=== PATIENT | female | born 1950 | race Caucasian/White ===

== ENCOUNTER → 2017-04-20 | Outpatient (CLI) | payer MEDICARE ==
[2017-04-20 11:06] LABS: Blood Urea Nitrogen 19 mg/dL (7-17); Non-African American GFR(MDRD) >60 (>60 ml/min/1.73 sqM)
--- NOTE | 2017-04-20 11:54 | CT ---
EXAMINATION TYPE: CT brain wo/w con DATE OF EXAM: 04/20/2017 COMPARISON: 08/07/2012 HISTORY: Syncope CT DLP: 1887.60 mGycm, Automated exposure control for dose reduction was used. CONTRAST: Patient injected with 100 ml mL of Omnipaque 300. CT of the brain is performed utilizing 3 mm thick sections through the posterior fossa and 3 mm thick sections through the remaining calvarium. Study is performed within 24 hours of arrival to the hospital. No abnormal hyperdensity is present to suggest an acute intracranial hemorrhage. No mass lesion is evident. No acute infarcts are evident. Subtle periventricular white matter hypodensity likely on the basis o f chronic white matter ischemic change is more apparent on the postcontrast images. No abnormal enhan cement is evident. Ventricles and sulci are appropriate for the patient age. Paranasal sinuses and mastoid air cells within the [id number] are clear. IMPRESSIONS: 1. Subtle chronic appearing white matter ischemic changes. 2. Pre and postcontrast CT brain otherwise appears unremarkable.
== END | disposition home or self-care (01) ==
LOC: RADCTMAIN 10:27
PROVIDERS: ATTEND Family Medicine
DX: R90.82 White matter disease, unspecified (principal); R55 Syncope and collapse
CPT/HCPCS: 82565; 84520; 70470; 36415; Q9967

== ENCOUNTER 2017-04-28 12:56 | Emergency (ER) | payer MEDICARE ==
[2017-04-28 13:36] LABS: Glucose,Whole Blood 90 mg/dL (75-99)
--- NOTE | 2017-04-28 13:57 | ED ---
General Adult HPI - General Chief complaint: Neuro Symptoms/Deficit Stated complaint: Tingle on left side Time Seen by Provider: 04/28/17 13:20 Source: patient, RN notes reviewed Mode of arrival: ambulatory Limitations: no limitations - History of Present Illness Initial comments: This is a 66-year-old female presents emergency department stating that she had some tingling sensation the left side of her body just around [place] she followed up with the primary medical care doctor which point in time she had carotid Doppler echocardiogram and a CT of her brain admitting was negative. Patient states since that she's had a couple episodes of the same tingling but she's ignored it. Patient states it only happens at rest when she gets up and walks around the symptoms go away. Patient states today at about 10:30 she had an hour long episode of tingling on the left side of her body however the middle of it she got up to go to the bathroom and the symptoms subsided when she sat back down the came back per patient denied any palpitations. Patient denied any chest pain difficulty breathing shortness of breath. Patient denied any recent fever chills or cough. Patient denied abdominal pain patient denies nausea vomiting or diarrhea. - Related Data Home Medications Medication Instructions Recorded Confirmed Atorvastatin [Lipitor] 20 mg PO HS 12/28/14 04/28/17 Clopidogrel [Plavix] 75 mg PO DAILY 12/28/14 04/28/17 Furosemide [Lasix] 20 mg PO DAILY 12/28/14 04/28/17 Levothyroxine Sodium [Synthroid] 50 mcg PO DAILY 12/28/14 04/28/17 Losartan Potassium [Cozaar] 100 mg PO DAILY 12/28/14 04/28/17 Montelukast [Singulair] 10 mg PO DAILY 12/28/14 04/28/17 Highlands-3 Fatty Acids [Highlands-3] 1,000 mg PO DAILY@1200 12/28/14 04/28/17 Calcium Carb/Vitamin D3/Vit K1 1 tab PO BID 04/28/17 04/28/17 [Viactiv Soft Chew Tablet] Calcium Polycarbophil [Fibercon] 1,300 mg PO PC-LUNCH 04/28/17 04/28/17 Cyanocobalamin (Vitamin B-12) 1,000 mcg PO DAILY@1200 04/28/17 04/28/17 [Vitamin B-12] FLUoxetine HCL [PROzac] 20 mg PO DAILY 04/28/17 04/28/17 Multivitamins, Thera [Multivitamin 1 tab PO DAILY 04/28/17 04/28/17 (formulary)] Potassium Chloride [Klor-Con 10] 10 meq PO DAILY@1200 04/28/17 04/28/17 Allergies Allergy/AdvReac Type Severity Reaction Status Date / Time nickel Allergy Rash/Hives Verified 04/28/17 14:10 Review of Systems ROS Statement: Those systems with pertinent positive or pertinent negative responses have been documented in the HPI. ROS Other: All systems not noted in ROS Statement are negative. Past Medical History Past Medical History: Cancer, Mitral Valve Prolapse (MVP) Additional Past Medical History / Comment(s): breast History of Any Multi-Drug Resistant Organisms: MRSA Date of last positivie culture/infection: 12-30-2014 MDRO Source:: abdominal wound Past Surgical History: Bariatric Surgery, Hysterectomy, Joint Replacement, Tubal Ligation Additional Past Surgical History / Comment(s): carpal tunnel , lab band, R Knee replacement,Left breast masectomy. Past Psychological History: No Psychological Hx Reported, Depression Smoking Status: Former smoker Past Alcohol Use History: Rare Past Drug Use History: None Reported - Past Family History Father Additional Family Medical History / Comment(s): Mulitipul myloma, General Exam - General Exam Comments Initial Comments: GENERAL: Patient is well-developed and well-nourished. Patient is nontoxic and well- hydrated and is in no acute distress. ENT: Neck is soft and supple. No significant lymphadenopathy is noted. Oropharynx is clear. Moist mucous membranes. Neck has full range of motion without eliciting any pain. EYES: The sclera were anicteric and conjunctiva were pink and moist. Extraocular movements were intact and pupils were equal round and reactive to light. Eyelids were unremarkable. PULMONARY: Unlabored respirations. Good breath sounds bilaterally. No audible rales rhonchi or wheezing was noted. CARDIOVASCULAR: There is a regular rate and rhythm without any murmurs gallops or rubs. ABDOMEN: Soft and nontender with normal bowel sounds. No palpable organomegaly was noted. There is no palpable pulsatile mass. SKIN: Skin is clear with no lesions or rashes and otherwise unremarkable. NEUROLOGIC: Patient is alert and oriented x3. Cranial nerves II through XII are grossly intact. Motor and sensory are also intact. Normal speech, volume and content. Symmetrical smile. MUSCULOSKELETAL: Normal extremities with adequate strength and full range of motion. No lower extremity swelling or edema. No calf tenderness. LYMPHATICS: No significant lymphadenopathy is noted PSYCHIATRIC: Normal psychiatric evaluation. Normal interpersonal interactions appears functionally intact in deals appropriately with others. No signs of depression. No signs of anxiety. Limitations: no limitations Course Vital Signs 04/28/17 04/28/17 13:18 15:03 Temperature 97.5 F L Pulse Rate 67 61 Respiratory 16 19 Rate Blood Pressure 172/72 134/75 O2 Sat by Pulse 99 99 Oximetry Medical Decision Making - Medical Decision Making EKG shows normal sinus rhythm at 60 bpm CO interval 154 QRS is 86 QT interval 470 QTC is 478. Patient's EKG shows no ST segment elevation or depression or T wave abnormalities are noted. Patient remained symptom-free in the emergency department. Patient will follow-up with her primary medical care doctor. - Lab Data Result diagrams: 04/28/17 13:42 04/28/17 13:42 Lab Results 04/28/17 04/28/17 04/28/17 Range/Units 13:31 13:42 13:42 WBC 7.4 (3.8-10.6) k/uL RBC 4.81 (3.80-5.40) m/uL Hgb 13.8 (11.4-16.0) gm/dL Hct 43.3 (34.0-46.0) % MCV 90.0 (80.0-100.0) fL MCH 28.8 (25.0-35.0) pg MCHC 32.0 (31.0-37.0) g/dL RDW 14.9 (11.5-15.5) % Plt Count 301 (150-450) k/uL Neutrophils % 64 % Lymphocytes % 27 % Monocytes % 4 % Eosinophils % 2 % Basophils % 1 % Neutrophils # 4.7 (1.3-7.7) k/uL Lymphocytes # 2.0 (1.0-4.8) k/uL Monocytes # 0.3 (0-1.0) k/uL Eosinophils # 0.1 (0-0.7) k/uL Basophils # 0.1 (0-0.2) k/uL PT (9.0-12.0) sec INR (<1.2) APTT (22.0-30.0) sec Sodium (137-145) mmol/L Potassium (3.5-5.1) mmol/L Chloride (98-107) mmol/L Carbon Dioxide (22-30) mmol/L Anion Gap mmol/L BUN (7-17) mg/dL Creatinine (0.52-1.04) mg/dL Est GFR (MDRD) Af Amer (>60 ml/min/1.73 sqM) Est GFR (MDRD) Non-Af (>60 ml/min/1.73 sqM) Glucose (74-99) mg/dL POC Glucose (mg/dL) 90 (75-99) mg/dL POC Glu Administrative Services Coordinator ID Magi Mazariegos Calcium (8.4-10.2) mg/dL Total Bilirubin (0.2-1.3) mg/dL AST (14-36) U/L ALT (9-52) U/L Alkaline Phosphatase (38-126) U/L Total Creatine Kinase 75 (30-135) U/L CK-MB (CK-2) 0.8 (0.0-2.4) ng/mL CK-MB (CK-2) Rel Index 1.1 Troponin I <0.012 (0.000-0.034) ng/mL Total Protein (6.3-8.2) g/dL Albumin (3.5-5.0) g/dL 04/28/17 04/28/17 Range/Units 13:42 13:42 WBC (3.8-10.6) k/uL RBC (3.80-5.40) m/uL Hgb (11.4-16.0) gm/dL Hct (34.0-46.0) % MCV (80.0-100.0) fL MCH (25.0-35.0) pg MCHC (31.0-37.0) g/dL RDW (11.5-15.5) % Plt Count (150-450) k/uL Neutrophils % % Lymphocytes % % Monocytes % % Eosinophils % % Basophils % % Neutrophils # (1.3-7.7) k/uL Lymphocytes # (1.0-4.8) k/uL Monocytes # (0-1.0) k/uL Eosinophils # (0-0.7) k/uL Basophils # (0-0.2) k/uL PT 9.6 (9.0-12.0) sec INR 1.0 (<1.2) APTT 24.3 (22.0-30.0) sec Sodium 140 (137-145) mmol/L Potassium 4.3 (3.5-5.1) mmol/L Chloride 101 (98-107) mmol/L Carbon Dioxide 30 (22-30) mmol/L Anion Gap 9 mmol/L BUN 12 (7-17) mg/dL Creatinine 0.74 (0.52-1.04) mg/dL Est GFR (MDRD) Af Amer >60 (>60 ml/min/1.73 sqM) Est GFR (MDRD) Non-Af >60 (>60 ml/min/1.73 sqM) Glucose 88 (74-99) mg/dL POC Glucose (mg/dL) (75-99) mg/dL POC Glu Administrative Services Coordinator ID Calcium 10.3 H (8.4-10.2) mg/dL Total Bilirubin 0.4 (0.2-1.3) mg/dL AST 21 (14-36) U/L ALT 37 (9-52) U/L Alkaline Phosphatase 88 (38-126) U/L Total Creatine Kinase (30-135) U/L CK-MB (CK-2) (0.0-2.4) ng/mL CK-MB (CK-2) Rel Index Troponin I (0.000-0.034) ng/mL Total Protein 7.1 (6.3-8.2) g/dL Albumin 4.4 (3.5-5.0) g/dL Disposition Clinical Impression: Paresthesia Disposition: HOME SELF-CARE Condition: Good Instructions: Paresthesia (ED) Referrals: Nay Ghosh DO [Primary Care Provider] - 1-2 days Time of Disposition: 15:42
[2017-04-28 14:29] LABS: Basophils # (A) 0.1 k/uL (0-0.2); Basophils % (A) 1 %; Eosinophils # (A) 0.1 k/uL (0-0.7); Eosinophils % (A) 2 %; HCT 43.3 % (34.0-46.0); HGB 13.8 gm/dL (11.4-16.0); Lymphocytes % (A) 27 %; MCH 28.8 pg (25.0-35.0); Mean Platelet Volume 6.6; Monocytes # (A) 0.3 k/uL (0-1.0); Monocytes % (A) 4 %; Neutrophils # (A) 4.7 k/uL (1.3-7.7); Neutrophils % (A) 64 %; Platelet Count 301 k/uL (150-450); RBC 4.81 m/uL (3.80-5.40); RDW 14.9 % (11.5-15.5); WBC 7.4 k/uL (3.8-10.6)
[2017-04-28 14:37] LABS: Partial Thromboplastin Time 24.3 sec (22.0-30.0); Prothrombin Time 9.6 sec (9.0-12.0)
[2017-04-28 14:44] LABS: ALT 37 U/L (9-52); AST 21 U/L (14-36); Albumin 4.4 g/dL (3.5-5.0); Alkaline Phosphatase 88 U/L (38-126); Anion Gap 9 mmol/L; Blood Urea Nitrogen 12 mg/dL (7-17); Calcium 10.3 mg/dL (8.4-10.2); Carbon Dioxide 30 mmol/L (22-30); Chloride 101 mmol/L (98-107); Glucose 88 mg/dL (74-99); Potassium 4.3 mmol/L (3.5-5.1); Sodium 140 mmol/L (137-145); Total Bilirubin 0.4 mg/dL (0.2-1.3); Total Protein 7.1 g/dL (6.3-8.2)
[2017-04-28 14:54] LABS: Creatine Kinase 75 U/L (30-135)
[2017-04-28 15:05] LABS: Creatine Kinase MB 0.8 ng/mL (0.0-2.4); Troponin I <0.012 ng/mL (0.000-0.034)
[2017-04-28 23:28] VITALS: BP 143/71; PULSE 61; RESP 16; TEMP 98.1
== END 2017-04-28 15:48 | disposition home or self-care (01) ==
LOC: EC 12:56
DX: R20.2 Paresthesia of skin (principal); Z87.891 Personal history of nicotine dependence; Z79.02 Long term (current) use of antithrombotics/antiplatelets; Z79.899 Other long term (current) drug therapy; Z91.09 Other allergy status, other than to drugs and biological substances; Z85.3 Personal history of malignant neoplasm of breast; Z90.12 Acquired absence of left breast and nipple; Z86.14 Personal history of Methicillin resistant Staphylococcus aureus infection
CPT/HCPCS: 36415; 80053; 82550; 82553; 84484; 85025; 85610; 85730; 93005; 99284

== ENCOUNTER → 2017-05-11 | Outpatient (CLI) | payer MEDICARE ==
--- NOTE | 2017-05-11 12:14 | MM ---
Reason for exam: additional evaluation requested from prior study. Last mammogram was performed 1 year and 3 months ago. History: Patient is postmenopausal, has history of other cancer at age 65, and has history of breast cancer at age 51. Cancelled Right US Needle Biopsy of the right breast, April 30, 2009. Malignant stereotactic core biopsy of the left breast, March 16, 2002. Mastectomy of the left breast, 2001. Core biopsy of the left breast. Chemotherapy. Took hormonal contraceptives for 12 years beginning at age 19. Took estrogen for 5 years beginning at age 45. Took tamoxifen for 5 years beginning at age 51. Physical Findings: Nurse did not find any significant physical abnormalities on exam. MG 3D Diag Mammo W/Cad RT CC and MLO view(s) were taken of the right breast. Prior study comparison: February 04, 2016, right breast MG 3d diag mammo w/cad RT. January 02, 2015, right breast MG diagnostic mammo RT w CAD. The breast tissue is heterogeneously dense. This may lower the sensitivity of mammography. There is chronic nodularity in the right breast. There is no discrete abnormality. No significant new findings when compared with previous films. These results were verbally communicated with the patient and result sheet given to the patient on 05/11/17. ASSESSMENT: Benign, BI-RAD 2 RECOMMENDATION: Follow-up diagnostic mammogram of the right breast in 1 year.
== END | disposition home or self-care (01) ==
LOC: RADMAMWWP 10:49
PROVIDERS: ATTEND Family Medicine
DX: Z08 Encounter for follow-up examination after completed treatment for malignant neoplasm (principal); Z85.3 Personal history of malignant neoplasm of breast
CPT/HCPCS: 77065; G0279

== ENCOUNTER → 2017-10-11 | Outpatient (CLI) | payer MEDICARE | END | disposition home or self-care (01) | LOC: RADECHMAIN 12:04 | PROVIDERS: ATTEND Family Medicine | DX: I49.3 Ventricular premature depolarization (principal); I47.1 Supraventricular tachycardia | CPT/HCPCS: 93270; 93271 ==

== ENCOUNTER → 2018-10-12 | Outpatient (CLI) | payer MEDICARE ==
--- NOTE | 2018-10-12 10:55 | MM ---
Reason for exam: additional evaluation requested from abnormal screening. Last mammogram was performed 1 year and 5 months ago. History: Patient is postmenopausal, has history of other cancer at age 65, and has history of breast cancer at age 51. Cancelled Right US Needle Biopsy of the right breast, April 30, 2009. Malignant stereotactic core biopsy of the left breast, March 16, 2002. Mastectomy of the left breast, 2001. Core biopsy of the left breast. Chemotherapy. Took hormonal contraceptives for 12 years beginning at age 19. Took estrogen for 5 years beginning at age 45. Took tamoxifen for 5 years beginning at age 51. Physical Findings: Nurse did not find any significant physical abnormalities on exam. MG 3D Diag Mammo W/Cad RT CC and MLO view(s) were taken of the right breast. Prior study comparison: May 11, 2017, right breast MG 3d diag mammo w/cad RT. February 04, 2016, right breast MG 3d diag mammo w/cad RT. The breast tissue is heterogeneously dense. This may lower the sensitivity of mammography. Finding #1: There is a 5 mm equal density (isodense), obscured mass in the upper outer quadrant of the right breast. Finding #2: There are typically benign calcifications in the right breast. These results were verbally communicated with the patient and result sheet given to the patient on 10/12/18. ASSESSMENT: Incomplete: need additional imaging evaluation, BI-RAD 0 RECOMMENDATION: Ultrasound of the right breast.
--- NOTE | 2018-10-12 10:56 | USB ---
Reason for exam: additional evaluation requested from abnormal screening. History: Patient is postmenopausal, has history of other cancer at age 65, and has history of breast cancer at age 51. Cancelled Right US Needle Biopsy of the right breast, April 30, 2009. Malignant stereotactic core biopsy of the left breast, March 16, 2002. Mastectomy of the left breast, 2001. Core biopsy of the left breast. Chemotherapy. Took hormonal contraceptives for 12 years beginning at age 19. Took estrogen for 5 years beginning at age 45. Took tamoxifen for 5 years beginning at age 51. US Breast Limited RT Right limited breast ultrasound including focal area of concern, retroareolar and axilla demonstrates a 0.5 x 0.3 x 0.3cm oval, lobular, cystic lesion at 10 o'clock and a 0.4 x 0.3 x 0.2cm oval, cystic lesion at 10 o'clock. These results were verbally communicated with the patient and result sheet given to the patient on 10/12/18. ASSESSMENT: Benign, BI-RAD 2 RECOMMENDATION: Routine screening mammogram of both breasts in 1 year.
== END | disposition home or self-care (01) ==
LOC: RADMAMWWP 08:28
PROVIDERS: ATTEND Family Medicine
DX: R92.8 Other abnormal and inconclusive findings on diagnostic imaging of breast (principal)
CPT/HCPCS: 77065; 76642; G0279; 77061

== ENCOUNTER → 2019-04-04 | Outpatient (CLI) | payer MEDICARE ==
--- NOTE | 2019-04-04 13:07 | CT ---
EXAMINATION TYPE: CT brain wo con DATE OF EXAM: 04/04/2019 COMPARISON: 04/20/2017 HISTORY: fainted on thanksgiving, memory loss CT DLP: 1064.3 mGycm Automated exposure control for dose reduction was used. TECHNIQUE: CT scan of the head is performed without contrast. FINDINGS: There is no acute intracranial hemorrhage or midline shift identified. There is diffuse v entricular and sulcal prominence consistent with diffuse age-related cerebral atrophy. There is low- attenuation in the periventricular white matter consistent with chronic small vessel ischemic change. Incidentally noted partially empty sella turcica. Dominant left frontal arachnoid granulation. The globes are intact and the visualized sinuses are clear. IMPRESSION: No acute intracranial hemorrhage or midline shift. There is diffuse age-related cerebra l atrophy and chronic small vessel ischemic change noted.
== END | disposition home or self-care (01) ==
LOC: RADCTMAIN 12:05
PROVIDERS: ATTEND Family Medicine
DX: G31.1 Senile degeneration of brain, not elsewhere classified (principal); I67.82 Cerebral ischemia
CPT/HCPCS: 70450

== ENCOUNTER → 2019-07-07 | Outpatient (CLI) | payer MEDICARE ==
--- NOTE | 2019-07-07 15:36 | MR ---
EXAMINATION TYPE: MR shoulder LT wo con DATE OF EXAM: 07/07/2019 COMPARISON: LEFT SHOULDER X-RAY JUNE 13, 2019. HISTORY: Pain in left shoulder. Pain with difficulty raising overhead for 3 to 4 months. TECHNIQUE: Multiplanar, multisequence imaging of the left shoulder is performed without contrast. FINDINGS: Rotator Cuff: Increased signal distal supraspinatus and infraspinatus tendons with focal articular blackwell rface tear involving the mid to posterior fibers supraspinatus tendon measuring 7 mm transversely sag ittal image 7 x 4 mm transversely coronal image 18 and humeral head one day earlier today was likely atypical hemangioma . Rotator cuff muscle bulk is preserved. Subscapularis tendon intact with some i ncreased signal. Acromioclavicular Joint: Fairly severe narrowing with mild superior capsular hypertrophy. Underlying fat plane maintained. Distal acromion morphology unremarkable. Loss of fat planes at this level noted . Glenohumeral Joint: Advanced narrowing inferiorly with large spur. Moderate joint effusion extending superiorly. Diminished T1 and increased T2 signal superior medial humeral head. Similar findings seen in the osseous glenoid with reactive subchondral cystic change. Labrum: The superior labrum presumed torn with increased signal at the biceps anchor coronal image 19 . Biceps Tendon: The long head of biceps is in normal location within bicipital groove. Bone marrow signal: As above. Other: No additional significant abnormality is appreciated. IMPRESSION: 1. Full thickness articular surface tear involving posterior one half of the supraspinatus tendon. 2. Fairly advanced degenerative changes glenohumeral and acromioclavicular joints as detailed above. Underlying impingement at level of acromion felt present.
== END | disposition home or self-care (01) ==
LOC: RADMRIMAIN 14:29
PROVIDERS: ATTEND Orthopaedic Surgery
DX: M75.112 Incomplete rotator cuff tear or rupture of left shoulder, not specified as traumatic (principal); M19.012 Primary osteoarthritis, left shoulder

== ENCOUNTER → 2019-10-17 | Outpatient (CLI) | payer MEDICARE | END | disposition home or self-care (01) | LOC: LABPAT 15:00 | PROVIDERS: ATTEND Orthopaedic Surgery | DX: Z01.812 Encounter for preprocedural laboratory examination (principal) | CPT/HCPCS: 87070 ==

== ENCOUNTER 2019-10-24 06:31 | Inpatient (IN) | payer MEDICARE ==
[2019-10-23 08:33] VITALS: BMI 45.7
--- NOTE | 2019-10-23 10:05 | HP ---
HISTORY AND PHYSICAL CHIEF COMPLAINT: Left shoulder pain. HISTORY OF PRESENT ILLNESS: The patient is a 69-year-old, right-hand dominant, retired female who presents with left shoulder pain, worsening over the past 4 years. She notes stiffness and pain with any overhead use. She is also having significant night symptoms. She has tried previous medications and injections with temporary partial relief. She notes the pain limits her normal function and activities. PAST MEDICAL HISTORY: Significant for hypertension, hypothyroidism, heart disease and breast cancer. PAST SURGICAL HISTORY: Significant right total knee arthroplasty and left mastectomy. CURRENT MEDICATIONS: Atorvastatin, cyclobenzaprine, fluoxetine, Lasix, levothyroxine, Plavix, metoprolol, Singulair, and tramadol. She denies drug allergies. FAMILY HISTORY: Significant for cancer. SOCIAL HISTORY: Negative for current tobacco or alcohol use. REVIEW OF SYSTEMS: Sixteen point review of systems otherwise reviewed and is noncontributory. PHYSICAL EXAMINATION: On examination, the patient is approximately 5 foot 2 inches, 230 pounds of endomorphic habitus. HEENT exam is nonfocal. Neck is supple. On examination of her left shoulder, she is tender about the anterior glenohumeral joint. She has moderate subacromial crepitus. Active range of motion forward elevation 95 degrees. External rotation of the arm side 30 degrees, internal rotation to L3. Motor strength is 5 minus over 5 for abduction and external rotation. Impingement test, Neer test, and Speed test are positive. Her distal neurovascular appears intact in the left upper extremity. X-rays of the left shoulder obtained in the office show severe glenohumeral joint osteoarthrosis with [id number] changes. Previous MRI showed evidence of a possible small tear involving the anterior aspect of the supraspinatus. IMPRESSION: 1. Left severe glenohumeral joint glenohumeral joint osteoarthrosis. 2. History of breast cancer status post mastectomy. RECOMMENDATIONS: I talked to the patient at length regarding her condition and treatment options. At this point, she is quite symptomatic and limited because of pain related to her osteoarthrosis. After thorough discussion, she opts to proceed with surgery. We will plan to proceed with left total shoulder arthroplasty. Risks and benefits were discussed at length in layman's terms. We will likely reinstitute her Plavix postoperatively. MMODL / IJN: [id number] /
[~2019-10-24 06:31] MED LIST: ACETAMINOPHEN TAB 500 MG TAB PO ONE; DEXAMETHASONE SOD PHOSPHATE 10 MG/ML 1 ML VIAL IV ONE; MELOXICAM 7.5 MG TAB PO ONE; MIDAZOLAM 2 MG/2 ML VIAL IV PRN; ONDANSETRON 4 MG/2 ML VIAL IVP ONE; TRANEXAMIC ACID 1,000 MG in SODIUM CHLORIDE 0.9% 100 ML IVPB ONE
[2019-10-24] MEDS: LACTATED RINGERS 1,000 ML IV SCH (07:01)
[2019-10-24] MEDS ORDERED: ONDANSETRON 4 MG/2 ML VIAL ONE ×2 (07:03→08:01)
[2019-10-24] MEDS ORDERED: ACETAMINOPHEN TAB 500 MG TAB ONE (07:03)
[2019-10-24 07:40] LABS: Basophils # (A) 0.1 k/uL (0-0.2); Basophils % (A) 1 %; Eosinophils # (A) 0.3 k/uL (0-0.7); Eosinophils % (A) 4 %; HCT 37.4 % (34.0-46.0); Hypochromasia Slight; Lymphocytes # (A) 1.5 k/uL (1.0-4.8); Lymphocytes % (A) 20 %; MCH 28.4 pg (25.0-35.0); MCV 88.7 fL (80.0-100.0); Mean Platelet Volume 6.6; Monocytes # (A) 0.3 k/uL (0-1.0); Monocytes % (A) 5 %; Neutrophils # (A) 5.1 k/uL (1.3-7.7); Neutrophils % (A) 70 %; Platelet Count 258 k/uL (150-450); RBC 4.22 m/uL (3.80-5.40); RDW 15.2 % (11.5-15.5); WBC 7.4 k/uL (3.8-10.6)
[2019-10-24 07:47] LABS: Partial Thromboplastin Time 24.8 sec (22.0-30.0); Prothrombin Time 10.1 sec (9.0-12.0)
[2019-10-24] MEDS ORDERED: fentaNYL (PF) 50 MCG/ML 2 ML AMP ONE (08:01)
[2019-10-24] MEDS ORDERED: ROPIVACAINE 5 MG/ML 30 ML VIAL ONE (08:01)
[2019-10-24] MEDS ORDERED: SODIUM CHLORIDE 0.9% 100 ML BAG ONE (08:01)
[2019-10-24] MEDS ORDERED: LIDOCAINE 1% INJ 10MG/ML (20 ML MDV) ONE (08:01)
[2019-10-24] MEDS ORDERED: PROPOFOL 10 MG/ML 20 ML VIAL IV ONE (08:01)
[2019-10-24] MEDS ORDERED: TRANEXAMIC ACID 1,000 MG/10 ML VIAL ONE (08:01)
[2019-10-24] MEDS ORDERED: SUCCINYLCHOLINE CHLORIDE VIAL 200 MG/10 ML VIAL IV ONE (08:01)
[2019-10-24] MEDS ORDERED: PHENYLEPHRINE-0.9% NACL SYG 1 MG/10 ML SYRINGE ONE (08:01)
[2019-10-24] MEDS ORDERED: MIDAZOLAM 2 MG/2 ML VIAL ONE (08:01)
[2019-10-24 08:03] LABS: ALT 22 U/L (4-34); AST 26 U/L (14-36); African American GFR (CKD) >90 (>60 ml/min/1.73 sqM); Albumin 4.2 g/dL (3.5-5.0); Alkaline Phosphatase 96 U/L (38-126); Anion Gap 7 mmol/L; Blood Urea Nitrogen 12 mg/dL (7-17); Calcium 9.3 mg/dL (8.4-10.2); Carbon Dioxide 30 mmol/L (22-30); Chloride 105 mmol/L (98-107); Glucose 111 mg/dL (74-99); Non-African American GFR(CKD) 90 (>60 ml/min/1.73 sqM); Potassium 3.9 mmol/L (3.5-5.1); Sodium 142 mmol/L (137-145); Total Bilirubin 0.7 mg/dL (0.2-1.3); Total Protein 6.9 g/dL (6.3-8.2)
[2019-10-24] MEDS ORDERED: HYDROcodone/APAP 5-325MG 1 EACH TAB PO PRN ×2 (09:52→09:54)
[2019-10-24] MEDS ORDERED: ONDANSETRON 4 MG/2 ML VIAL IVP PRN (09:52)
[2019-10-24] MEDS ORDERED: SENNOSIDES-DOCUSATE SODIUM 1 EACH TAB PO PRN (09:52)
[2019-10-24] MEDS ORDERED: HYDROmorphone 0.5 MG/0.5 ML SYRINGE IVP PRN (09:52)
[2019-10-24] MEDS ORDERED: HYDROmorphone 1 MG/ML 1 ML SYRINGE IVP PRN (09:52)
[2019-10-24] MEDS ORDERED: ACETAMINOPHEN TAB 325 MG TAB PO PRN (09:54)
--- NOTE | 2019-10-24 10:20 | P.OP ---
Date of Procedure: 10/24/19 Preoperative Diagnosis: Severe left glenohumeral joint osteoarthrosis Postoperative Diagnosis: Same Procedure(s) Performed: Left total shoulder arthroplasty Implants: [employer] size 10 press-fit stem/size 10 metaphysis, 44 x 21 mm eccentric humeral head, 44 mm cemented pegged glenoid Anesthesia: ZACHARY Surgeon: Kain Kelly Admissions Rn #1: Anthony Paz Estimated Blood Loss (ml): 100 Pathology: other (Humeral head) Condition: stable Disposition: PACU Indications for Procedure: The patient's a 69-year-old female who presents with progressive left shoulder pain secondary osteoarthrosis despite conservative measures. A discussion of the risks and benefits of operative intervention versus continued conservative measures was made with patient. She opted to proceed with surgery. Operative risks to include infection, fracture, development blood clots, neurovascular injury, possible component loosening, possible component failure need for subsequent procedures was discussed. Informed consent was obtained. Operative Findings: As below Description of Procedure: The patient was brought to the operating room, and after induction of general anesthesia was placed in the beachchair position. The bony prominences were appropriately padded. The left upper extremity was prepped and draped in normal fashion. A deltopectoral incision was then made lateral to the coracoid process extending approximately 12 cm. The skin was incised sharply. Subcutaneous tissues were divided bluntly. Electrocautery was used for hemostasis. The deltopectoral interval was identified and the cephalic vein gently retracted laterally with the deltoid. Subdeltoid adhesions were bluntly dissected. A self-retaining retractor was placed. The clavipectoral fascia was opened and the conjoined tendon gently retracted medially. The upper one third of the pectoralis major was released to help facilitate exposure. The biceps was identified and the sheath was opened. The rotator interval was opened. The biceps was tenotomized and allowed to retract distally. The lesser tuberosity osteotomy was performed with a small sagittal saw. This completed with an osteotome. The humeral head was then exposed releasing the capsule off the humeral neck. The shoulder was gently dislocated. A starting hole was made in the head in line with the humeral shaft. The shaft was reamed by hand up to 10 mm. There is good distal chatter. The cutting guide was placed planning on a cut flush with the rotator cuff insertion and 30 of retroversion. The cutting block was pinned in place. The humeral head cut was then made. This measured most appropriately at 44 x 21 mm. Residual inferior osteophytes were carefully removed flush with the [place] cortical bone. A posterior glenoid retractor was placed. The glenoid was then exposed releasing the labrum from the and 6:00 to 12 o'clock position. Residual labral tissue was removed. The glenoid sized most appropriate 44 mm. A guidewire was then inserted planning on the appropriate version. The glenoid was reamed down to a bleeding bony surface. The central pedicle was drilled. The alignment guide was placed in the peripheral peg holes drilled. The trial size 44 mm glenoid was placed and was fully seated. There was good anterior to posterior and inferior to superior fit. The trial component was removed. Pulsatile lavage was utilized. The bony surface was dried. The peripheral peg holes were then pressurized with cement utilizing a syringe. Excess cement was removed. A central peg glenoid was then placed and was fully seated. This was gently impacted. This was held in place until the cement had sufficiently hardened. Attention was then paid again towards preparing the proximal humerus. The appropriate broach was placed in 30 of retroversion and was fully seated. An eccentric 44 x 21 mm humeral head was placed. The shoulder was gently reduced. It was taken through a range of motion. It was felt to be stable in flexion and extension with internal and external rotation. I felt there was adequate hinduism of soft tissue tension. The shoulder was gently dislocated. The trial components were then removed. A #2 Ethibond was placed laterally for reattachment of the lesser tuberosity. The humeral stem was inserted in 30 of retroversion and was fully seated. There was good rotational stability. The eccentric 44 x 21 mm humeral head was gently impacted. The shoulder was then gently reduced and taken through range of motion and was felt to be stable. Pulsatile lavage was utilized. Lesser tuberosity was reattached utilizing #2 Ethibond suture. The rotator interval was closed with #2 Ethibond suture. She had minimal drainage at this point therefore a deep drain was not placed. The deltopectoral interval was closed with interrupted 2-0 Vicryl sutures. The subcu tissues were reapproximated with interrupted 2-0 Vicryl sutures. The skin was reprepped with 3-0 subcuticular Prolene suture. Steri-Strips were applied. A sterile dressing was applied in addition to a sling. The patient was then awoken from general anesthesia and transferred to recovery room in good condition. Blood loss was estimated at 100 mL. No complications were incurred. Sponge and needle counts were correct at the end the case. Vladimir WILLIAMSON assistance during the major components is case to include exposure, bony resection, implantation, and closure.
[2019-10-24] MEDS ORDERED: ROPIVACAINE 5 MG/ML 30 ML VIAL MISCELLANE ONE (10:34)
--- NOTE | 2019-10-24 11:07 | P.ANPRN ---
Procedure Note - Anesthesia - Nerve Block Performed Left Interscalene Single Date of Procedure: 10/24/19 Procedure Start Time: 10:40 Procedure Stop Time: 10:45 Location of Patient: Phase I Indication: Acute Post-Operative Pain, Requested by Surgeon Specifically requested for management of pain by : Kain Kelly Sedation Type: Awake Preparation: Sterile Prep, Sterile Dressing Position: Sitting Catheter: None Needle Types: Pajunk Needle Gauge: 21, Other (see comment) (2 inch ) Ultrasound used to visualize needle placement: Yes Ultrasound used to observe medication spread: Yes Injectate: 0.5% Ropivacaine (see comment for volume) (30ml) Blood Aspirated: No Pain Paresthesia on Injection Noted: No Resistance on Injection: Normal Image Stored and Saved: Yes Events: Uneventful and Well Tolerated
[2019-10-24] MEDS ORDERED: LACTATED RINGERS 1,000 ML IV ONE (12:19)
[2019-10-24] MEDS: HYDROmorphone 0.5 MG/0.5 ML SYRINGE IVP PRN ×2 (12:25→12:34)
--- NOTE | 2019-10-24 12:58 | XR ---
Left shoulder HISTORY: Status post left total shoulder arthroplasty Single frontal view of the left shoulder Patient shows left shoulder arthroplasty change. Surgical clips are present in the left axilla at the bony labrum. Lucency is present in the soft tissues. There is anatomic alignment. Left lung apex as visualized is unremarkable. Aorta is dense. IMPRESSION: Orthopedic follow-up.
[2019-10-24] MEDS: traMADol 50 MG TAB PO SCH ×3 (15:05→22:43)
[2019-10-24] MEDS ORDERED: ATORVASTATIN 40 MG TAB PO SCH (21:00)
[2019-10-25] MEDS: LACTATED RINGERS 1,000 ML IV SCH (06:09)
[2019-10-25] MEDS ORDERED: LEVOTHYROXINE 50 MCG TAB PO SCH (06:30)
[2019-10-25 06:44] LABS: Basophils # (A) 0.1 k/uL (0-0.2); Basophils % (A) 0 %; Eosinophils # (A) 0.1 k/uL (0-0.7); Eosinophils % (A) 1 %; HCT 34.2 % (34.0-46.0); Hypochromasia Slight; Lymphocytes # (A) 1.5 k/uL (1.0-4.8); Lymphocytes % (A) 13 %; MCH 29.1 pg (25.0-35.0); MCHC 32.3 g/dL (31.0-37.0); MCV 90.2 fL (80.0-100.0); Mean Platelet Volume 6.8; Monocytes # (A) 0.4 k/uL (0-1.0); Monocytes % (A) 4 %; Neutrophils # (A) 9.9 k/uL (1.3-7.7); Neutrophils % (A) 82 %; Platelet Count 312 k/uL (150-450); RDW 15.2 % (11.5-15.5); WBC 12.1 k/uL (3.8-10.6)
[2019-10-25 06:58] LABS: HGB 11.1 gm/dL (11.4-16.0)
[2019-10-25 07:15] VITALS: BP 134/76; RESP 17; TEMP 98.2
[2019-10-25] MEDS ORDERED: FLUoxetine HCL 10 MG CAP PO SCH (09:00)
[2019-10-25] MEDS ORDERED: MONTELUKAST 10 MG TAB PO SCH (09:00)
[2019-10-25] MEDS ORDERED: CLOPIDOGREL 75 MG TAB PO SCH (09:00)
[2019-10-25] MEDS ORDERED: METOPROLOL SUCCINATE (ER) 25 MG TAB.ER.24H PO SCH (09:00)
[2019-10-25] MEDS ORDERED: FUROSEMIDE 40 MG TAB PO SCH (09:30)
--- NOTE | 2019-10-25 09:31 | P.CONS ---
History of Present Illness - Reason for Consult Consult date: 10/25/19 Medical eval - Chief Complaint Left shoulder pain - History of Present Illness Jayne Llanes is a 69 yo F with history of osteoarthritis, diastolic CHF, hypertension, hypothyroid who is admitted for scheduled left total shoulder arthroplasty. She is postop day #1 today, doing well reports shoulder pain limiting her sleep but denies fever, chills, shortness of breath. Pain is controlled with oral medications. She does complain of some leg swelling today. Review of Systems All systems: negative Constitutional: Denies chills, Denies fever Eyes: denies blurred vision, denies pain Ears, nose, mouth and throat: Denies headache, Denies sore throat Cardiovascular: Reports edema, Denies chest pain, Denies shortness of breath Respiratory: Denies cough Gastrointestinal: Denies abdominal pain, Denies diarrhea, Denies nausea, Denies vomiting Genitourinary: Denies dysuria, Denies hematuria Musculoskeletal: Reports as per HPI, Reports limitation of motion, Denies myalgias Integumentary: Denies pruritus, Denies rash Neurological: Denies numbness, Denies weakness Psychiatric: Denies anxiety, Denies depression Endocrine: Denies fatigue, Denies weight change Past Medical History Past Medical History: Cancer, Heart Failure, CVA/TIA, Hyperlipidemia, Hypertension, Mitral Valve Prolapse (MVP), Osteoarthritis (OA), Thyroid Disorder Additional Past Medical History / Comment(s): hx. breast cancer 17 yrs. ago, TIA 2018-no residual effects History of Any Multi-Drug Resistant Organisms: MRSA Year Discovered:: 12-30-2014 MDRO Source:: abdominal wound Past Surgical History: Bariatric Surgery, Hysterectomy, Joint Replacement, Tubal Ligation Additional Past Surgical History / Comment(s): carpal tunnel, ganglion cyst, lap band, R Knee replacement,Left breast mastectomy. Past Anesthesia/Blood Transfusion Reactions: No Reported Reaction Past Psychological History: Depression Smoking Status: Former smoker Past Alcohol Use History: Rare Additional Past Alcohol Use History / Comment(s): quit smoking 21 yrs. ago, had smoked since teens >1ppd Past Drug Use History: None Reported - Past Family History Father Additional Family Medical History / Comment(s): Mulitipul myloma, Medications and Allergies Home Medications Medication Instructions Recorded Confirmed Type Atorvastatin [Lipitor] 40 mg PO HS 12/28/14 10/24/19 History Clopidogrel [Plavix] 75 mg PO DAILY 12/28/14 10/23/19 History Furosemide [Lasix] 40 mg PO DAILY 12/28/14 10/23/19 History Levothyroxine Sodium [Synthroid] 50 mcg PO DAILY 12/28/14 10/23/19 History Losartan Potassium [Cozaar] 100 mg PO DAILY 12/28/14 10/23/19 History Montelukast [Singulair] 10 mg PO DAILY 12/28/14 10/23/19 History Calcium Carb/Vitamin D3/Vit K1 1 tab PO DAILY 04/28/17 10/24/19 History [Viactiv Soft Chew Tablet] FLUoxetine HCL [PROzac] 10 mg PO DAILY 04/28/17 10/23/19 History Potassium Chloride [Klor-Con 10] 10 meq PO DAILY@1200 04/28/17 10/23/19 History Cholecalciferol [Vitamin D3 (25 1,000 unit PO DAILY 10/23/19 10/23/19 History Mcg = 1000 Iu)] Metoprolol Succinate (ER) [Toprol 12.5 mg PO DAILY 10/23/19 10/23/19 History Xl] Multivitamins, Thera [Multivitamin 1 tab PO DAILY 10/23/19 10/23/19 History (formulary)] Naproxen [Naprosyn] 375 mg PO Q12HR 10/23/19 10/23/19 History Vitamin B Complex 1 each PO DAILY 10/23/19 10/23/19 History diphenhydrAMINE [Benadryl] 25 mg PO BID PRN 10/23/19 10/24/19 History Allergies Allergy/AdvReac Type Severity Reaction Status Date / Time nickel Allergy Rash/Hives Verified 10/20/19 15:22 Physical Exam Vitals: Vital Signs Temp Pulse Pulse Resp BP Pulse Ox 10/25/19 07:00 98.2 F 67 17 134/76 96 10/25/19 01:04 98.5 F 88 15 109/64 95 10/24/19 19:38 98.8 F 72 16 118/70 95 10/24/19 16:00 66 70 18 10/24/19 15:45 98.5 F 70 18 137/80 93 L 10/24/19 14:43 66 16 125/65 99 10/24/19 14:15 69 14 113/72 97 10/24/19 14:00 65 16 134/69 99 10/24/19 13:27 68 14 130/61 99 10/24/19 12:30 69 16 132/74 97 10/24/19 12:00 68 16 137/70 100 10/24/19 11:25 65 16 124/62 99 10/24/19 11:00 64 16 122/65 100 10/24/19 10:45 62 16 122/65 100 10/24/19 10:30 62 16 131/69 100 10/24/19 10:15 97.0 F L 66 16 135/64 100 Intake and Output 10/24/19 10/25/19 10/25/19 22:59 06:59 14:59 Intake Total 296 260 Output Total 500 Balance -204 260 Intake: Oral 296 260 Output: Urine 500 Other: # Voids 1 1 Weight 113.398 kg Gen.: Well-developed, well-nourished white female in no acute distress HEENT: Normocephalic, atraumatic, mucous membranes moist Neck: Supple, no thyromegaly, no JVD CV: Regular rate and rhythm, no murmur. 2+ edema bilateral lower extremities Lungs: Normal respiratory effort clear throughout Abdomen: Soft, nontender, bowel sounds present Extremities: Left shoulder in sling, reduced range of motion Neuro: Alert and oriented 3 no focal deficits Skin: Warm and dry Results CBC & Chem 7: 10/25/19 05:58 10/24/19 07:20 Labs: Abnormal Lab Results - Last 24 Hours (Table) 10/25/19 Range/Units 05:58 WBC 12.1 H (3.8-10.6) k/uL Hgb 11.1 L (11.4-16.0) gm/dL Neutrophils # 9.9 H (1.3-7.7) k/uL Assessment and Plan (1) Osteoarthritis of left shoulder Current Visit: Yes Status: Acute Code(s): M19.012 - PRIMARY OSTEOARTHRITIS, LEFT SHOULDER SNOMED Code(s): 443812950327093 (2) Chronic diastolic CHF (congestive heart failure) Current Visit: Yes Status: Acute Code(s): I50.32 - CHRONIC DIASTOLIC (CONGESTIVE) HEART FAILURE SNOMED Code(s): 052516626 (3) Hypertension Current Visit: Yes Status: Acute Code(s): I10 - ESSENTIAL (PRIMARY) HYPERTENSION SNOMED Code(s): 77342101 (4) Depression Current Visit: No Status: Acute Code(s): F32.9 - MAJOR DEPRESSIVE DISORDER, SINGLE EPISODE, UNSPECIFIED SNOMED Code(s): 81111942 (5) Hyperlipidemia Current Visit: No Status: Acute Code(s): E78.5 - HYPERLIPIDEMIA, UNSPECIFIED SNOMED Code(s): 34746127 (6) Hypothyroidism Current Visit: No Status: Acute Code(s): E03.9 - HYPOTHYROIDISM, UNSPECIFIED SNOMED Code(s): 16065271 Plan: 1. Osteoarthritis of left shoulder, status post left total shoulder. Pain control, management per ortho. PT. She is medically stable for discharge 2. Chronic diastolic CHF. Resume Lasix, continue Lopressor, Plavix 3. Hypertension. Resume losartan 4. Hyperlipidemia. Lipitor 5. Major depression. Prozac
[2019-10-25 09:35] VITALS: PULSE 88
--- NOTE | 2019-10-25 10:00 | P.PN ---
Subjective Progress Note Date: 10/25/19 Principal diagnosis: Status post left total shoulder arthroplasty Patient evaluated today at bedside, she is resting comfortably. Her pain is controlled, she did take some oral pain medication this morning which seemed to help. Denies chest pain or shortness of breath. Objective - Vital Signs Vital signs: Vital Signs Temp 98.2 F 10/25/19 07:00 Pulse 88 10/25/19 08:00 Resp 17 10/25/19 08:00 BP 134/76 10/25/19 07:00 Pulse Ox 96 10/25/19 07:00 Intake & Output 10/24/19 10/25/19 10/25/19 18:59 06:59 18:59 Intake Total 1346 260 Output Total 600 Balance 746 260 Weight 113.398 kg Intake: IV 1050 Oral 296 260 Output: Urine 500 Estimated Blood Loss 100 Other: # Voids 1 1 - Exam Left upper extremity: Postoperative bandage is removed, incision is clean, dry and intact. Minimal soft tissue swelling and ecchymosis present. Sensory exam to light touch Xarelto extremities intact. Radial pulses 2+. - Labs CBC & Chem 7: 10/25/19 05:58 10/24/19 07:20 Labs: Abnormal Lab Results - Last 24 Hours (Table) 10/25/19 Range/Units 05:58 WBC 12.1 H (3.8-10.6) k/uL Hgb 11.1 L (11.4-16.0) gm/dL Neutrophils # 9.9 H (1.3-7.7) k/uL Assessment and Plan Assessment: Status post left total shoulder arthroplasty Plan: Pain control, plan for discharge home on oral medication GI and DVT prophylaxis, he will resume Plavix Wound care instructions discussed Activity restrictions and use of sling were discussed Ice and elevate often Medical recommendations Plan for discharge home today Time with Patient: Less than 30
--- NOTE | 2019-10-25 10:04 | P.DS ---
Providers Date of admission: 10/24/19 06:31 Expected date of discharge: 10/25/19 Attending physician: Kain Kelly Consults: 10/24/19 09:52 Consult Physician Routine Consulting Provider: Trang Maradiaga Reason/Comments: medical management Do you want consulting provider notified?: Yes Primary care physician: Trang Maradiaga [place] [facility] Course: Date of admission: 10/24/2019 Date of discharge: 10/25/2019 Admission diagnosis: Status post left total shoulder arthroplasty Discharge diagnosis: Same Attending physician: Dr. Kelly Surgical procedures: Left total shoulder arthroplasty Brief history: Patient is a 69-year-old female with a history of is a primary left shoulder osteoarthritis. At this point patient has failed conservative treatment measures and has opted to proceed with a elective left total shoulder arthroplasty. Hospital course: Details of patient's surgery can be found in operative report. Patient tolerated the procedure well and was subsequently transported to orthopedic floor. Patient's orthopeidc and medical care was provided daily. Patient had daily laboratory tests performed for evaluation of overall blood counts. Patient had daily physical therapy to include strengthening range of motion as well as education with walker ambulation. Patient was treated with Plavix for their postoperative DVT prophylaxis during their inpatient stay. Paul thornton was noted to have a relatively uneventful postoperative course. Patient reported satisfactory pain control with oral pain medications by postoperative day 0. Patient showed satisfactory progress with physical therapy. Patient moved steadily through the program and had no difficulty meeting the goals by postoperative day 1. Given patient's otherwise satisfactory course and having met physical therapy goals, plan is to discharge patient home on postoperative day 1. Discharge condition/disposition: Patient will be discharged home in stable condition. Discharge medications: Instructions are given on resumption of patient's normal daily medications per primary care recommendation, in addition patient will be prescribed [place]kill 5 mg/325 mg. Discharge instructions: 1. Wound care and infection precautions, keep incision dry and covered while showering, no lotions, creams, moisturizers. No soaking, tubs, pools, hottubs. Do not scrub over the incision. 2. Utilize arm sling, 3. Ice and elevate when necessary. Do not exceed 20 minutes per hour with ice pack. 4. Utilize compression sleeve until seen at first follow up appointment. 7. Pain meds and anticoagulants per prescription. 8. Pain medication has potential to cause constipation. Increase oral fluid and fiber intake. Contact primary care provider if you have not had a bowel movement within 48 hours after discharge 9. No anti-inflammatory medication until discussed at first post operative visit, this including Motrin, Aleve, Mobic, Diclofenac 10. Follow up in office at 2 weeks postop with Vladimir Paz PA-C 11. Follow up with your primary care doctor 7-10 days after discharge. 12. Contact [facility] with any questions, . Procedures: Left total shoulder arthroplasty Patient Condition at Discharge: Good Plan - Discharge Summary Discharge Rx Participant: Yes New Discharge Prescriptions: New HYDROcodone/APAP 5-325MG [[place]kill 5-325] 1 - 2 tab PO Q6HR PRN #40 tab PRN Reason: Pain No Action Atorvastatin [Lipitor] 40 mg PO HS Montelukast [Singulair] 10 mg PO DAILY Losartan Potassium [Cozaar] 100 mg PO DAILY Levothyroxine Sodium [Synthroid] 50 mcg PO DAILY Furosemide [Lasix] 40 mg PO DAILY Clopidogrel [Plavix] 75 mg PO DAILY FLUoxetine HCL [PROzac] 10 mg PO DAILY Calcium Carb/Vitamin D3/Vit K1 [Viactiv Soft Chew Tablet] 1 tab PO DAILY Potassium Chloride [Klor-Con 10] 10 meq PO DAILY@1200 Naproxen [Naprosyn] 375 mg PO Q12HR Multivitamins, Thera [Multivitamin (formulary)] 1 tab PO DAILY Cholecalciferol [Vitamin D3 (25 Mcg = 1000 Iu)] 1,000 unit PO DAILY diphenhydrAMINE [Benadryl] 25 mg PO BID PRN PRN Reason: allergies Metoprolol Succinate (ER) [Toprol Xl] 12.5 mg PO DAILY Vitamin B Complex 1 each PO DAILY Discharge Medication List Atorvastatin [Lipitor] 40 mg PO HS 12/28/14 [History] Clopidogrel [Plavix] 75 mg PO DAILY 12/28/14 [History] Furosemide [Lasix] 40 mg PO DAILY 12/28/14 [History] Levothyroxine Sodium [Synthroid] 50 mcg PO DAILY 12/28/14 [History] Losartan Potassium [Cozaar] 100 mg PO DAILY 12/28/14 [History] Montelukast [Singulair] 10 mg PO DAILY 12/28/14 [History] Calcium Carb/Vitamin D3/Vit K1 [Viactiv Soft Chew Tablet] 1 tab PO DAILY 04/28/17 [History] FLUoxetine HCL [PROzac] 10 mg PO DAILY 04/28/17 [History] Potassium Chloride [Klor-Con 10] 10 meq PO DAILY@1200 04/28/17 [History] Cholecalciferol [Vitamin D3 (25 Mcg = 1000 Iu)] 1,000 unit PO DAILY 10/23/19 [History] Metoprolol Succinate (ER) [Toprol Xl] 12.5 mg PO DAILY 10/23/19 [History] Multivitamins, Thera [Multivitamin (formulary)] 1 tab PO DAILY 10/23/19 [History] Naproxen [Naprosyn] 375 mg PO Q12HR 10/23/19 [History] Vitamin B Complex 1 each PO DAILY 10/23/19 [History] diphenhydrAMINE [Benadryl] 25 mg PO BID PRN 10/23/19 [History] HYDROcodone/APAP 5-325MG [[place] 5-325] 1 - 2 tab PO Q6HR PRN #40 tab 10/25/19 [Rx] Follow up Appointment(s)/Referral(s): Trang Maradiaga DO [Primary Care Provider] - 1 Week (Office computers are down. Office will call you and schedule a follow up apointment. ) Anthony Paz PAC [PHYSICIAN [employer] PRESS FEEDER] - 11/10/19 2:40 pm Patient Instructions/Handouts: How to Use a Sling (DC), Joint Replacement Surgery (DC), Shoulder Arthroplasty (DC) Activity/Diet/Wound Care/Special Instructions: Orthopedic discharge instructions: 1. Do not remove the stitches or Steri-Strips, keep covered and dry while showering 2. Ice the shoulder often 3. Utilize arm sling 4. Pain medication as needed 5. Resume Plavix once home 6. Plan for follow[facility]up at [facility] 2 weeks Discharge Disposition: HOME SELF-CARE
[2019-10-25] MEDS: traMADol 50 MG TAB PO SCH (10:54)
== END 2019-10-25 13:05 | disposition home health service (06) | DRG 483 ==
LOC: 2ORMAIN 06:31 → 6PED 14:48
PROVIDERS: ADMIT Orthopaedic Surgery; ATTEND Orthopaedic Surgery
PROC: 0RRK0JZ Replacement of Left Shoulder Joint with Synthetic Substitute, Open Approach (ICD-10-PCS; principal; 2019-10-24 08:00)
DX: M19.012 Primary osteoarthritis, left shoulder (principal); I50.32 Chronic diastolic (congestive) heart failure; E03.9 Hypothyroidism, unspecified; E78.5 Hyperlipidemia, unspecified; F32.9 Major depressive disorder, single episode, unspecified; I11.0 Hypertensive heart disease with heart failure; Z96.651 Presence of right artificial knee joint; Z79.02 Long term (current) use of antithrombotics/antiplatelets; Z90.710 Acquired absence of both cervix and uterus; Z90.12 Acquired absence of left breast and nipple; Z87.891 Personal history of nicotine dependence; Z85.3 Personal history of malignant neoplasm of breast; Z80.9 Family history of malignant neoplasm, unspecified; Z86.73 Personal history of transient ischemic attack (TIA), and cerebral infarction without residual deficits; Z98.51 Tubal ligation status; Z98.890 Other specified postprocedural states; Z79.899 Other long term (current) drug therapy; Z79.890 Hormone replacement therapy; Z88.9 Allergy status to unspecified drugs, medicaments and biological substances
CPT/HCPCS: 64415; 76942; 80053; 85025; 85610; 85730; 88300

== ENCOUNTER → 2019-11-10 | Outpatient (CLI) | payer MEDICARE ==
--- NOTE | 2019-11-10 13:18 | ECHOF ---
Referral Reason:I35.8 aortic valve disorder MEASUREMENTS -------- HEIGHT: 157.5 cm WEIGHT: 114.8 kg BP: RVIDd: 2.1 cm (< 3.3) IVSd: 1.4 cm (0.6 - 1.1) LVIDd: 3.5 cm (3.9 - 5.3) LVPWd: 1.6 cm (0.6 - 1.1) IVSs: 2.0 cm LVIDs: 1.7 cm LVPWs: 1.9 cm Ao Diam: 2.6 cm (2.0 - 3.7) AV Cusp: 1.7 cm (1.5 - 2.6) LA Diam: 3.4 cm (2.7 - 3.8) MV EXCURSION: 10.759 mm (> 18.000) MV EF SLOPE: 31 mm/s (70 - 150) EPSS: 0.3 cm MV E Schuyler: 1.35 m/s MV DecT: 253 ms MV A Schuyler: 0.73 m/s MV E/A Ratio: 1.85 AV maxP.20 mmHg AV meanP.32 mmHg AR PHT: 641 ms RAP: 5.00 mmHg RVSP: 31.57 mmHg FINDINGS -------- Sinus rhythm. This was a technically adequate study. The left ventricular size is normal. There is moderate concentric left ventricular hypertrophy. O verall left ventricular systolic function is normal with, an EF between 55 - 60 %. The right ventricle is normal in size. The left atrial size is normal. The right atrial size is normal. There is mild aortic valve sclerosis. There is mild aortic regurgitation. There is mild aortic st enosis present. Peak/mean gradient across the Aortic Valve is 34.20mmHg / 20.32mmHg. Mild mitral annular calcification present. Mild mitral regurgitation is present. The tricuspid valve appears structurally normal. Mild tricuspid regurgitation present. Right vent ricular systolic pressure is normal at < 35 mmHg. The right ventricular systolic pressure, as measu red by Doppler, is 31.57mmHg. There is no pulmonic regurgitation present. The aortic root size is normal. Normal inferior vena cava with normal inspiratory collapse consistent with estimated right atrial pre ssure of 5 mmHg. There is no pericardial effusion. CONCLUSIONS -------- 1. There is moderate concentric left ventricular hypertrophy. 2. Overall left ventricular systolic function is normal with, an EF between 55 - 60 %. 3. The left atrial size is normal. 4. There is mild aortic valve sclerosis. 5. There is mild aortic regurgitation. 6. There is mild aortic stenosis present. 7. Peak/mean gradient across the Aortic Valve is 34.20mmHg / 20.32mmHg. 8. Mild mitral annular calcification present. 9. Mild mitral regurgitation is present. 10. Mild tricuspid regurgitation present. HOOP PUNCH OPERATOR HELPER: Terri Rainey RDCS
== END | disposition home or self-care (01) ==
LOC: RADECHMAIN 11:42
PROVIDERS: ATTEND Thoracic Surgery (Cardiothoracic Vascular Surgery)
DX: I08.3 Combined rheumatic disorders of mitral, aortic and tricuspid valves (principal)
CPT/HCPCS: 93306

== ENCOUNTER → 2019-12-12 | Outpatient (CLI) | payer MEDICARE ==
[~2019-12-12] MED LIST changes: -ACETAMINOPHEN TAB 500 MG TAB PO ONE; -DEXAMETHASONE SOD PHOSPHATE 10 MG/ML 1 ML VIAL IV ONE; -MELOXICAM 7.5 MG TAB PO ONE; -MIDAZOLAM 2 MG/2 ML VIAL IV PRN; -ONDANSETRON 4 MG/2 ML VIAL IVP ONE; +REGADENOSON 0.4 MG/5 ML SYRINGE IV ONE; -TRANEXAMIC ACID 1,000 MG in SODIUM CHLORIDE 0.9% 100 ML IVPB ONE
--- NOTE | 2019-12-12 13:02 | NM ---
EXAMINATION TYPE: NM stress lexiscan cardiolite DATE OF EXAM: 12/12/2019 COMPARISON: NONE HISTORY: Chest pain TECHNIQUE: After the intravenous administration of 10.46 mCi Tc 99m Sestamibi - Cardiolite resting S PECT images acquired 60 minutes post injection. The patient received 0.4mg Lexiscan, 26.6 mCi Tc 99m Sestamibi - Stress images obtained [address] injection FINDINGS: Review of stress and rest SPECT images demonstrates no distinct perfusion abnormality. Gated analysi s shows normal wall motion with an estimated left ventricular ejection fraction of 73 %. IMPRESSION: No scintigraphic evidence for reversible ischemia.
--- NOTE | 2019-12-14 07:34 | EST ---
EXERCISE STRESS DATE OF SERVICE: 12/12/2019 AGE: 69 SEX: Female HT: 60 WT: 250 PROTOCOL: Lexiscan Cardiolite STAGE: DURATION OF EXERCISE: HEART RATE REST: 66 BLOOD PRESSURE REST: 117;51 MAXIMUM HEART RATE ACHIEVED: 80 MAXIMUM BLOOD PRESSURE: 117/51 85% MPHR: 128 100% MPHR: 150 METS: INDICATIONS: Chest pain. STRESS DATA: Pretesting physical examination showed a heart rate of 66, pressure is 117/51 mmHg. Baseline EKG showed sinus mechanism. The patient was given 0.4 mg of Lexiscan over 15 seconds per protocol. Max heart rate was 80 beats per minute and maximum pressure was 117/51 mmHg. Clinically, the patient did not have any symptoms of chest pain or chest discomfort and the EKG did not show any significant ST or T-wave abnormalities concerning for ischemia. CONCLUSION: 1. Nondiagnostic electrocardiogram stress testing in response to Lexiscan. 2. Please follow up on the Cardiolite portion on separate report from Radiology Department. MMODL / IJN: [id number] /
== END | disposition home or self-care (01) ==
LOC: RADNMMAIN 08:33
PROVIDERS: ATTEND Thoracic Surgery (Cardiothoracic Vascular Surgery)
DX: I20.9 Angina pectoris, unspecified (principal); I35.8 Other nonrheumatic aortic valve disorders; Z91.048 Other nonmedicinal substance allergy status; Z91.09 Other allergy status, other than to drugs and biological substances
CPT/HCPCS: 93017; 78452; A9500; J2785

== ENCOUNTER → 2020-02-12 | Outpatient (CLI) | payer MEDICARE ==
--- NOTE | 2020-02-12 13:27 | ECHOF ---
Referral Reason:I35.8 aortic valve disorder MEASUREMENTS -------- HEIGHT: 152.4 cm WEIGHT: 112.9 kg BP: RVIDd: 2.9 cm (< 3.3) IVSd: 1.2 cm (0.6 - 1.1) LVIDd: 4.2 cm (3.9 - 5.3) LVPWd: 1.1 cm (0.6 - 1.1) IVSs: 1.7 cm LVIDs: 2.7 cm LVPWs: 1.7 cm LA Diam: 3.5 cm (2.7 - 3.8) LAESV Index (A-L): 27.76 ml/m Ao Diam: 2.8 cm (2.0 - 3.7) AV Cusp: 1.3 cm (1.5 - 2.6) MV EXCURSION: 13.362 mm (> 18.000) MV EF SLOPE: 33 mm/s (70 - 150) EPSS: 0.4 cm MV E Schuyler: 1.59 m/s MV DecT: 248 ms MV A Schuyler: 1.02 m/s MV E/A Ratio: 1.56 AV maxP.13 mmHg AV meanP.52 mmHg AR PHT: 510 ms RAP: 15.00 mmHg RVSP: 42.74 mmHg FINDINGS -------- Sinus rhythm. This was a technically good study. The left ventricular size is normal. There is borderline concentric left ventricular hypertrophy. Overall left ventricular systolic function is normal with, an EF between 60 - 65 %. The right ventricle is normal in size. Normal LA size by volume 22+/-6 ml/m2. The right atrium is normal in size. Interatrial and interventricular septum intact. There is mild to moderate aortic valve sclerosis. There is [id number] aortic regurgitation. There is moderate aortic stenosis present. Peak/mean gradient across the Aortic Valve is 43.13mmHg / 25.52mmHg. The mitral valve leaflets are mildly thickened. Mild mitral annular calcification present. Mild m itral regurgitation is present. Mild tricuspid regurgitation present. There is mild pulmonary hypertension. The right ventricular systolic pressure, as measured by Doppler, is 42.74mmHg. The pulmonic valve was not well visualized. The aortic root size is normal. The inferior vena cava is dilated with no significant inspiratory collapse which is consistent estima linnea right atrial pressure of >15 mmHg. There is no pericardial effusion. CONCLUSIONS -------- 1. The left ventricular size is normal. 2. There is borderline concentric left ventricular hypertrophy. 3. Overall left ventricular systolic function is normal with, an EF between 60 - 65 %. 4. There is mild to moderate aortic valve sclerosis. 5. There is [id number] aortic regurgitation. 6. There is moderate aortic stenosis present. 7. Peak/mean gradient across the Aortic Valve is 43.13mmHg / 25.52mmHg. 8. The mitral valve leaflets are mildly thickened. 9. Mild mitral annular calcification present. 10. Mild mitral regurgitation is present. 11. Mild tricuspid regurgitation present. 12. There is mild pulmonary hypertension. 13. The right ventricular systolic pressure, as measured by Doppler, is 42.74mmHg. 14. The inferior vena cava is dilated with no significant inspiratory collapse which is consistent es timated right atrial pressure of >15 mmHg. 15. There is no pericardial effusion. GAS USAGE METER CLERK: Codi Cardenas RDCS
== END | disposition home or self-care (01) ==
LOC: RADECHMAIN 11:26
PROVIDERS: ATTEND Thoracic Surgery (Cardiothoracic Vascular Surgery)
DX: I08.3 Combined rheumatic disorders of mitral, aortic and tricuspid valves (principal); I27.20 Pulmonary hypertension, unspecified; Z91.048 Other nonmedicinal substance allergy status
CPT/HCPCS: 93306

== ENCOUNTER → 2020-03-04 | Outpatient (CLI) | payer MEDICARE ==
--- NOTE | 2020-03-05 09:27 | MM ---
Reason for exam: screening (asymptomatic). Last mammogram was performed 1 year and 5 months ago. History: Patient is postmenopausal, has history of other cancer at age 65, and has history of breast cancer at age 51. Cancelled Right US Needle Biopsy of the right breast, April 30, 2009. Malignant stereotactic core biopsy of the left breast, March 16, 2002. Mastectomy of the left breast, 2001. Core biopsy of the left breast. Chemotherapy. Took hormonal contraceptives for 12 years beginning at age 19. Took estrogen for 5 years beginning at age 45. Took tamoxifen for 5 years beginning at age 51. Physical Findings: A clinical breast exam by your physician is recommended on an annual basis and results should be correlated with mammographic findings. MG 3D Scr Raoul Unilateral W/Cad CC and MLO view(s) were taken of the right breast. Prior study comparison: October 12, 2018, right breast MG 3d diag mammo w/cad RT. May 11, 2017, right breast MG 3d diag mammo w/cad RT. The breast tissue is heterogeneously dense. This may lower the sensitivity of mammography. Stable benign calcifications. There is chronic nodularity in the right breast. There is no discrete abnormality. No significant changes when compared with prior studies. ASSESSMENT: Benign, BI-RAD 2 RECOMMENDATION: Routine screening mammogram of the right breast in 1 year.
== END | disposition home or self-care (01) ==
LOC: RADMAMWWP 10:56
PROVIDERS: ATTEND Family Medicine
DX: Z12.31 Encounter for screening mammogram for malignant neoplasm of breast (principal); Z90.12 Acquired absence of left breast and nipple
CPT/HCPCS: 77067

== ENCOUNTER → 2020-05-13 | Outpatient (CLI) | payer MEDICARE ==
--- NOTE | 2020-05-14 07:31 | ECHOF ---
Referral Reason:I20.9 Angina I35.8 Aortic valve disorder MEASUREMENTS -------- HEIGHT: 152.4 cm WEIGHT: 113.4 kg BP: RVIDd: 3.8 cm (< 3.3) IVSd: 1.6 cm (0.6 - 1.1) LVIDd: 4.1 cm (3.9 - 5.3) LVPWd: 1.3 cm (0.6 - 1.1) IVSs: 1.9 cm LVIDs: 2.5 cm LVPWs: 1.8 cm LAESV Index (A-L): 23.41 ml/m Ao Diam: 2.5 cm (2.0 - 3.7) AV Cusp: 1.0 cm (1.5 - 2.6) LA Diam: 4.2 cm (2.7 - 3.8) MV EXCURSION: 15.568 mm (> 18.000) MV EF SLOPE: 39 mm/s (70 - 150) EPSS: 0.6 cm MV E Schuyler: 1.37 m/s MV DecT: 247 ms MV A Schuyler: 1.04 m/s MV E/A Ratio: 1.32 AV maxP.63 mmHg AV meanP.33 mmHg AR PHT: 596 ms RAP: 15.00 mmHg RVSP: 50.58 mmHg FINDINGS -------- Sinus rhythm. This was a technically adequate study. The left ventricular size is normal. There is moderate concentric left ventricular hypertrophy. O verall left ventricular systolic function is normal with, an EF between 55 - 60 %. The diastolic fi lling pattern is normal for the age of the patient 11.38. The right ventricle is mild to moderately enlarged. Normal LA size by volume 22+/-6 ml/m2. The right atrial size is normal. Interatrial and interventricular septum intact. There is mild aortic regurgitation. Moderate to severe aortic stenosis with peak/mean pressure grad ient of 46.63mmHg / 28.33mmHg, the aortic valve area by continuity equation is 0.8cm. Peak/mean gr adient across the Aortic Valve is 46.63mmHg / 28.33mmHg. Moderate mitral annular calcification present. Ubmj-xm-yuhacxww mitral regurgitation is present. The tricuspid valve appears structurally normal. Jtuv-fq-xjxcmheq tricuspid regurgitation present. There is moderate pulmonary hypertension. The right ventricular systolic pressure, as measured by Doppler, is 50.58mmHg. There is no pulmonic regurgitation present. The aortic root size is normal. The inferior vena cava is dilated with poor inspiratory collapse which is consistent with estimated r ight atrial pressure of 20 mmHg. There is no pericardial effusion. CONCLUSIONS -------- 1. There is moderate concentric left ventricular hypertrophy. 2. Overall left ventricular systolic function is normal with, an EF between 55 - 60 %. 3. The right ventricle is mild to moderately enlarged. 4. Normal LA size by volume 22+/-6 ml/m2. 5. There is mild aortic regurgitation. 6. Moderate to severe aortic stenosis with peak/mean pressure gradient of 46.63mmHg / 28.33mmHg, the aortic valve area by continuity equation is 0.8cm. 7. Peak/mean gradient across the Aortic Valve is 46.63mmHg / 28.33mmHg. 8. Moderate mitral annular calcification present. 9. Tbjm-ty-vdmnwfri mitral regurgitation is present. 10. Ogzk-ox-fmzdxlxa tricuspid regurgitation present. 11. There is moderate pulmonary hypertension. 12. The inferior vena cava is dilated with poor inspiratory collapse which is consistent with estimat ed right atrial pressure of 20 mmHg. MEDICAL STAFF COORDINATOR: Negrita Soriano RDCS
== END | disposition home or self-care (01) ==
LOC: RADECHMAIN 11:18
PROVIDERS: ATTEND Thoracic Surgery (Cardiothoracic Vascular Surgery)
DX: I08.3 Combined rheumatic disorders of mitral, aortic and tricuspid valves (principal); I27.20 Pulmonary hypertension, unspecified; I87.8 Other specified disorders of veins; Z91.048 Other nonmedicinal substance allergy status; Z91.09 Other allergy status, other than to drugs and biological substances
CPT/HCPCS: 93306

== ENCOUNTER → 2020-06-21 | Outpatient (CLI) | payer MEDICARE ==
[2020-06-21 13:41] LABS: HGB 13.9 gm/dL (11.4-16.0); MCH 28.4 pg (25.0-35.0); MCHC 32.4 g/dL (31.0-37.0); MCV 87.6 fL (80.0-100.0); Mean Platelet Volume 6.3; Platelet Count 254 k/uL (150-450); RDW 14.7 % (11.5-15.5); WBC 7.7 k/uL (3.8-10.6)
[2020-06-21 13:55] LABS: African American GFR (CKD) >90 (>60 ml/min/1.73 sqM); Anion Gap 8 mmol/L; Blood Urea Nitrogen 15 mg/dL (7-17); Carbon Dioxide 32 mmol/L (22-30); Chloride 98 mmol/L (98-107); Non-African American GFR(CKD) 86 (>60 ml/min/1.73 sqM); Potassium 4.4 mmol/L (3.5-5.1); Sodium 138 mmol/L (137-145)
== END | disposition home or self-care (01) ==
LOC: LABPAT 11:42
PROVIDERS: ATTEND Internal Medicine
DX: Z01.818 Encounter for other preprocedural examination (principal); I35.0 Nonrheumatic aortic (valve) stenosis
CPT/HCPCS: 36415; 80051; 82565; 84520; 85027

== ENCOUNTER → 2020-06-25 | Outpatient (CLI) | payer SELFPAY ==
--- NOTE | 2020-07-03 11:13 | CT ---
EXAMINATION TYPE: CT TAVR Planning DATE OF EXAM: 06/25/2020 HISTORY: nonrheumatic aortic valve insufficiency CT DLP: 2205.6 mGycm Automated Exposure Control for Dose Reduction was Utilized. CONTRAST: CT scan of the chest, abdomen and pelvis is performed with IV Contrast, patient injected with 125 mL of Isovue 370. COMPARISON: CT abdomen pelvis 08/07/2012 TECHNIQUE: Helical imaging obtained through the chest, abdomen and pelvis during arterial phase jhoana jackie administration of radiographic contrast intravenously. Three-dimensional reconstructions performe d on an alternate workstation. FINDINGS: See report from [employer] regarding preprocedural planning CHEST: Lower Neck and Thyroid: Unremarkable Lungs: 6 mm subpleural nodule left upper lobe posterior medially on axial image 22 is noted Central Airway: Patent Pleura: No thickening, no pleural effusion Pulmonary Arteries: Not dilated Heart and Pericardium: No pericardial effusion. There is a peripherally calcified low dense focus at the inferior margin of the right atrium extending anteriorly measuring 5.7 cm in AP dimension by 1.9 cm in cephalad to caudal dimension by 4 cm in transverse dimension. Some calcification is also presen t along the posterior pericardium. Correlate for remote hemorrhage, trauma. Lymph Nodes: Nonenlarged Mediastinum & Esophagus: Distal esophagus is somewhat dilated, shows a thickened wall, there is some fluid present within the esophagus with dependent high attenuation possibly due to radiopaque medicat ion, the lap band of the gastroesophageal junction. ABDOMEN/PELVIS: Please note arterial phase of the imaging limits detailed evaluation of the solid abdominal organs. Liver: Low attenuation likely due to hepatic steatosis Spleen: No evident mass Kidneys: Right kidney shows a somewhat transverse orientation Adrenal Glands: Left adrenal gland shows an unusual orientation but no evident mass, right adrenal gl and unremarkable Pancreas: Within normal limits Gallbladder: Unremarkable Bowel and Mesentery: Diverticular changes associated with the sigmoid colon is extensive Lymph Nodes: Nonenlarged Urinary Bladder: Normal as seen Pelvic Organs: Not identified Other: Lung show some sclerotic change at the sacroiliac joints possibly due to stress changes, degen erative disc change present in the lower lumbar spine Other Lines/Tubes/Devices/Hardware: Lap band in place IMPRESSION: See outside report from [employer] for procedure planning purposes. Indeterminate calcifie d area along the pericardium as described. Post lap band changes. Hepatic steatosis. Diverticulosis. Indeterminate pulmonary nodule, follow-up recommended.
== END | disposition home or self-care (01) ==
LOC: RADCTMAIN 10:50
PROVIDERS: ATTEND Nurse Practitioner Acute Care
DX: I31.1 Chronic constrictive pericarditis (principal); Z98.84 Bariatric surgery status; K76.0 Fatty (change of) liver, not elsewhere classified; I35.1 Nonrheumatic aortic (valve) insufficiency
CPT/HCPCS: 71275; 74174

== ENCOUNTER 2020-07-04 10:15 | Day surgery (SDC) | payer MEDICARE ==
[2020-06-20 10:08] VITALS: BMI 48.4
[~2020-07-04 10:15] MED LIST changes: +ALPRAZolam 0.25 MG TAB PO PRN; +ALPRAZolam 0.5 MG TAB PO PRN; +ASPIRIN 325 MG TAB PO STA; +ATORVASTATIN 80 MG TAB PO STA; +NITROGLYCERIN SL TABS 0.4 MG TAB SUBLINGUAL PRN; -REGADENOSON 0.4 MG/5 ML SYRINGE IV ONE; +SODIUM CHLORIDE 0.9% 1,000 ML in EMPTY BAG 1 BAG IV ONE
[2020-07-04 10:49] VITALS: TEMP 98.3
[2020-07-04] MEDS ORDERED: fentaNYL (PF) 50 MCG/ML 2 ML AMP ONE (11:24)
[2020-07-04] MEDS ORDERED: SODIUM CHLORIDE 0.9% 1,000 ML IV ONE (11:27)
[2020-07-04] MEDS ORDERED: MIDAZOLAM 2 MG/2 ML VIAL IV ONE ×3 (12:04→12:09)
[2020-07-04] MEDS ORDERED: BENZOCAINE SPRAY 1 CAN TOPICAL ONE (12:04)
[2020-07-04] MEDS: fentaNYL (PF) 50 MCG/ML 2 ML AMP IV ONE ×2 (12:05→12:09)
[2020-07-04] MEDS: MIDAZOLAM 2 MG/2 ML VIAL IV ONE ×2 (12:12→12:17)
[2020-07-04 12:21] VITALS: RESP 16
[2020-07-04] MEDS ORDERED: HEPARIN SODIUM 1,000 UN/ML (10ML VL) ONE (12:44)
[2020-07-04] MEDS ORDERED: VERAPAMIL 2.5 MG/ML 2 ML AMP ONE (12:44)
[2020-07-04] MEDS ORDERED: LIDOCAINE 1% INJ 10MG/ML (20 ML MDV) ONE (12:44)
[2020-07-04] MEDS ORDERED: LIDOCAINE 1% INJ 10MG/ML (20 ML MDV) SQ ONE (12:47)
[2020-07-04] MEDS ORDERED: VERAPAMIL SYRINGE (5 MG/10 ML) INTRAARTER ONE (12:57)
[2020-07-04] MEDS ORDERED: IOPAMIDOL-370 125ML BTL INJ ONE (13:04)
[2020-07-04 17:18] VITALS: BP 136/66; PULSE 74
--- NOTE | 2020-07-04 22:10 | P.TEE ---
Description of Procedure(s): Procedure performed: Transesophageal Echocardiogram with color flow doppler, pulsed wave doppler and continuous wave doppler, moderate conscious sedation Moderate conscious sedation: Sedation was provided with Fentanyl and Versed with direct supervision by myself Complications: none Indications: Moderate to severe History: Patient is a pleasant 69-year-old female with history of obesity, hypertension, and aortic stenosis who evaluates for elective BOB. She has been monitored for a murmur with 3 echo is being performed in the last 8 months. Initially there was concern of mild aortic stenosis however this had appeared to have progressed however Vmax of 3.5 m/s and concern of severe aortic stenosis by continuity equation. Patient's symptoms however have been dyspnea on exertion which have been fairly constant over last year and a half. There was some question as to whether this truly represented severe aortic stenosis and therefore BOB and heart catheterization for recommended. PROCEDURE: After the risks, benefits and alternatives of the above mentioned procedure was explained in detail with the patient, informed consent was obtained. Patient was brought to the lab in a fasting state. Patient was given sedation by anesthesia. The throat was sprayed with Hurricane to anesthetize the throat. A lubricated Omni probe was then introduced into the esophagus and stomach and multiple views were obtained. 2D echo with color flow doppler, pulsed wave doppler and continuous wave doppler was utilized. Agitated saline bubbles were injected to assess for any intra-atrial shunt. Patient's blood pressure was somewhat elevated and therefore antihypertensives were given to evaluate if any improvement in degree of MR, however there was not much change. The probe was then removed. Patient tolerated the procedure well. Patient was transferred to the post procedure area in stable and satisfactory condition. FINDINGS: 1. The aortic valve appears to be tricupsid however mainly fusion of the right and left cusp with freely mobile noncoronary cusp, cannot exclude functionally bicuspid aortic valve. There is mild to moderate aortic sclerosis, however noncoronary cusp is mobile. WALT by continuity is 1.3cm2 consistent with moderate aortic stenosis. 2. The mitral valve is structurally normal. There is mild to moderate central mitral regurgitation. 3. Tricuspid valve is normal. There is trace tricuspid regurgitation. 4. The interatrial septum is intact. No evidence of PFO. There are late bubbles seen in the left atrium greater than 5 seconds after injection possibly consistent with an extracardiac shunt. 5. Left atrial appendage is free of clot. 6. Left ventricular size and function appear to be normal with EF 55-60%. 7. Normal left atrium and right atrial size.
--- NOTE | 2020-07-04 22:19 | P.CARDCATH ---
Description of Procedure: PROCEDURES PERFORMED: Left heart catheterization, bilateral coronary angiography INDICATION: Moderate to severe aortic stenosis HISTORY: Patient is a pleasant 69-year-old female with history of obesity, hypertension, and aortic stenosis who evaluates for elective BOB. She has been monitored for a murmur with 3 echo is being performed in the last 8 months. Initially there was concern of mild aortic stenosis however this had appeared to have progressed however Vmax of 3.5 m/s and concern of severe aortic stenosis by continuity equation. Patient's symptoms however have been dyspnea on exertion which have been fairly constant over last year and a half. There was some question as to whether this truly represented severe aortic stenosis and therefore BOB and heart catheterization for recommended. CONSENT:I have discussed the risks, benefits and alternative therapies for the above-mentioned procedure and for both sedation/analgesia as well as necessary blood product administration, if indicated, as they pertain to this patient. The patient has indicated understanding and acceptance of the risks and procedures discussed. PROCEDURE: After the risks, benefits and alternatives of the above mentioned procedure explained in detail with the patient, informed consent was obtained. Patient was taken to the catheterization lab and prepped and draped in usual fashion. 1% lidocaine was used to anesthetize the right radial artery. A 6- [place] sheath was placed in the right radial artery using modified Seldinger technique and ultrasound guidance. Right coronary angiography was performed with a 5Fr FR5 catheter and left coronary angiography was performed with a 5Fr FL 3.5 catheter. The Fr 5 catheter was easily passed into the left ventricle and pressure measurement were obtained. Pullback was performed with a peak to peak gradient of 26mmHg and a mean gradient of 21mmHg. The right radial sheath was removed and a TR band was placed with hemostasis achieved. The patient tolerated the procedure well. Patient was transported back to the post catheterization holding area in stable condition. Conscious Sedation: Patient was monitored under the direct supervision of vision of myself for conscious sedation using fentanyl for a total duration of 19 minutes HEMODYNAMICS: Aorta: 156/78 LV: 152/5 LVEDP 17mmHg SELECTIVE CORONARY ARTERIOGRAPHY: LEFT MAIN: The left main is a large caliber vessel which bifurcates into the LAD and circumflex. There is proximal 20-30% left main stenosis. LEFT ANTERIOR DESCENDING CORONARY ARTERY: LAD is a large caliber vessel which wraps around to the apex. There are mild luminal irregularities. LEFT CIRCUMFLEX CORONARY ARTERY: Left circumflex is a moderate to large caliber vessel. The circumflex has only mild luminal irregularities. RIGHT CORONARY ARTERY: The right coronary artery is a small to moderate caliber vessel which gives off a PDA and PLV branch and is the dominant vessel. There is no significant disease. FINAL IMPRESSION: 1. Minimal CAD as described above with only 20-30% proximal LAD stenosis. 2. Moderate aortic stenosis with peak to peak gradient of 26mmHg and mean gradient of 21mmHg 3. Mildly elevated left sided filling pressures PLAN: 1. Aggressive risk factor modification per most recent ACC/AHA guidelines. 2. Given BOB and LHC show valve appears to have only moderate aortic stenosis at this time, would recommend continued observance and no intervention at this time.
== END 2020-07-04 17:05 | disposition home or self-care (01) ==
LOC: CATHCVL 10:15
PROVIDERS: ATTEND Internal Medicine
DX: I08.3 Combined rheumatic disorders of mitral, aortic and tricuspid valves (principal); I25.10 Atherosclerotic heart disease of native coronary artery without angina pectoris; I10 Essential (primary) hypertension; R55 Syncope and collapse; M19.90 Unspecified osteoarthritis, unspecified site; Z85.3 Personal history of malignant neoplasm of breast; Z92.21 Personal history of antineoplastic chemotherapy; Z90.10 Acquired absence of unspecified breast and nipple; Z91.048 Other nonmedicinal substance allergy status; Z82.49 Family history of ischemic heart disease and other diseases of the circulatory system; Z72.0 Tobacco use; Z79.02 Long term (current) use of antithrombotics/antiplatelets; Z79.890 Hormone replacement therapy; Z79.899 Other long term (current) drug therapy
CPT/HCPCS: 93312; 93320; 93325; 93458; C1769; C1894; J2250; J2001; J3010; J1644; Q9967

== ENCOUNTER → 2020-07-08 | Outpatient (CLI) | payer MEDICARE ==
--- NOTE | 2020-07-08 11:14 | US ---
EXAMINATION TYPE: US carotid duplex BILAT DATE OF EXAM: 07/08/2020 COMPARISON: NONE CLINICAL HISTORY: R55. Dizziness EXAM MEASUREMENTS: RIGHT: Peak Systolic Velocity (PSV) cm/sec ----- Right CCA: 73.2 ----- Right ICA: 79.0 ----- Right ECA: 113.4 ICA/CCA ratio: 1.1 RIGHT: End Diastole cm/sec ----- Right CCA: 13.8 ----- Right ICA: 20.6 ----- Right ECA: 0.0 LEFT: Peak Systolic Velocity (PSV) cm/sec ----- Left CCA: 69.4 ----- Left ICA: 170.6 ----- Left ECA: 104.3 ICA/CCA ratio: 2.5 LEFT: End Diastole cm/sec ----- Left CCA: 14.5 ----- Left ICA: 48.5 ----- Left ECA: 15.0 VERTEBRALS (direction of flow): Right Vertebral: Antegrade Left Vertebral: Antegrade Rhythm: Normal Large calcification near left bulb/proximal ICA causing elevated velocities at proximal ICA, Right side shows no evidence of significant stenosis IMPRESSION: 1. Atherosclerotic change greater on the left with findings suggestive of a 50-69% stenosis. Correlat e with CTA of the neck as clinically warranted. Criteria for Assigning % of Stenosis / Diameter reduction (Estimation based on the indirect measurements of the internal carotid artery velocities (ICA PSV). 1. Normal (no stenosis)=ICA PSV < 125 cm/s: ratio < 2.0: ICA EDV<40 cm/s. 2. Less than 50% stenosis=ICA PSV < 125 cm/s: ratio < 2.0: ICA EDV<40 cm/s. 3. 50 to 69% stenosis=ICA PSV of 125 to 230 cm/s: ration 2.0 ? 4.0: ICA EDV 40-100 cm/s. 4. Greater than 70% stenosis to near occlusion= ICA PSV > 230 cm/s: ratio > 4.0: ICA EDV > 100 cm/s. 5. Near occlusion= ICA PSV velocities may be low or undetectable: variable ratio and ICA EDV. 6. Total occlusion=unable to detect flow.
== END | disposition home or self-care (01) ==
LOC: LABWHC1 10:14
PROVIDERS: ATTEND Thoracic Surgery (Cardiothoracic Vascular Surgery)
DX: I65.22 Occlusion and stenosis of left carotid artery (principal)
CPT/HCPCS: 93880

== ENCOUNTER → 2020-08-05 | Outpatient (CLI) | payer MEDICARE ==
--- NOTE | 2020-08-05 16:26 | XR ---
EXAMINATION TYPE: XR chest 2V DATE OF EXAM: 08/05/2020 COMPARISON: 01/01/2015 HISTORY: 69-year-old female cough and shortness of breath TECHNIQUE: Frontal and lateral views FINDINGS: Heart borderline in size. Mild interstitial prominence. Surgical clips in the left axilla. No valerie c onsolidation or pleural effusion. Left shoulder arthroplasty. IMPRESSION: 1. Borderline heart size. 2. Interstitial changes could reflect mild pulmonary vascular congestion, bronchitis, chronic asthma, or early atypical pneumonia.
== END | disposition home or self-care (01) ==
LOC: RADXRMAIN 16:00
PROVIDERS: ATTEND Physician Assistant Medical
DX: R91.8 Other nonspecific abnormal finding of lung field (principal); R05 Cough; R06.02 Shortness of breath
CPT/HCPCS: 71046

== ENCOUNTER → 2021-07-08 | Outpatient (CLI) | payer MEDICARE, OTHER ==
--- NOTE | 2021-07-08 12:43 | MM ---
Reason for exam: additional evaluation requested from prior study. Last mammogram was performed 1 year and 4 months ago. History: Patient is postmenopausal, has history of other cancer at age 65, and has history of breast cancer at age 51. Cancelled Right US Needle Biopsy of the right breast, April 30, 2009. Malignant stereotactic core biopsy of the left breast, March 16, 2002. Mastectomy of the left breast, 2001. Core biopsy of the left breast. Chemotherapy. Took hormonal contraceptives for 12 years beginning at age 19. Took estrogen for 5 years beginning at age 45. Took tamoxifen for 5 years beginning at age 51. Physical Findings: A clinical breast exam by your physician is recommended on an annual basis and results should be correlated with mammographic findings. MG 3D Diag Mammo W/Cad RT CC and MLO view(s) were taken of the right breast. Prior study comparison: March 04, 2020, bilateral MG 3d scr nancy unilateral w/cad. October 12, 2018, right breast MG 3d diag mammo w/cad RT. There are scattered fibroglandular densities. There is chronic nodularity in the right breast. A few benign secretory calcifications are present. No significant new findings when compared with previous films. These results were verbally communicated with the patient and result sheet given to the patient on 07/08/21. ASSESSMENT: Incomplete: need additional imaging evaluation, BI-RAD 0 RECOMMENDATION: Ultrasound of the right breast. (periareolar and subareolar)
--- NOTE | 2021-07-08 12:45 | USB ---
Reason for exam: additional evaluation requested from abnormal screening. History: Patient is postmenopausal, has history of other cancer at age 65, and has history of breast cancer at age 51. Cancelled Right US Needle Biopsy of the right breast, April 30, 2009. Malignant stereotactic core biopsy of the left breast, March 16, 2002. Mastectomy of the left breast, 2001. Core biopsy of the left breast. Chemotherapy. Took hormonal contraceptives for 12 years beginning at age 19. Took estrogen for 5 years beginning at age 45. Took tamoxifen for 5 years beginning at age 51. US Breast Limited RT Right limited breast ultrasound including focal area of concern, retroareolar and axilla demonstrates ducts at the posterior nipple, a couple mildly ectatic. No cystic or solid lesion seen. Retroareolar and posterior nipple scanned. These results were verbally communicated with the patient and result sheet given to the patient on 07/08/21. ASSESSMENT: Benign, BI-RAD 2 RECOMMENDATION: Follow-up diagnostic mammogram of the right breast in 1 year. Manage on a clinical basis with regard to patient's clinical nipple concern.
== END | disposition home or self-care (01) ==
LOC: RADMAMWWP 10:54
PROVIDERS: ATTEND Family Medicine
DX: R92.8 Other abnormal and inconclusive findings on diagnostic imaging of breast (principal); Z85.3 Personal history of malignant neoplasm of breast
CPT/HCPCS: 77065; 76642; G0279; 77061

== ENCOUNTER 2022-02-27 11:21 | Day surgery (SDC) | payer MEDICARE ==
[2022-02-25 09:46] VITALS: BMI 45.1
[~2022-02-27 11:21] MED LIST changes: -ALPRAZolam 0.25 MG TAB PO PRN; -ALPRAZolam 0.5 MG TAB PO PRN; -ASPIRIN 325 MG TAB PO STA; -ATORVASTATIN 80 MG TAB PO STA; +LACTATED RINGERS 1,000 ML IV SCH; +LIDOCAINE 1% (10MG/ML) FOR IV START INTRADERMA PRN; -NITROGLYCERIN SL TABS 0.4 MG TAB SUBLINGUAL PRN; -SODIUM CHLORIDE 0.9% 1,000 ML in EMPTY BAG 1 BAG IV ONE
[2022-02-27 12:47] VITALS: TEMP 97
[2022-02-27] MEDS ORDERED: PROPOFOL 10 MG/ML 20 ML VIAL IV ONE (13:53)
[2022-02-27] MEDS ORDERED: LIDOCAINE 2% INJ 20 MG/ML (2 ML VIAL) ONE (13:53)
--- NOTE | 2022-02-27 14:39 | P.PCN ---
Date of Procedure: 02/27/22 Procedure(s) Performed: BRIEF HISTORY: Patient is a 71-year-old pleasant White scheduled for an elective colonoscopy as a part of evaluation of change in bowel habits for the last 6 weeks duration.she has prior history of colon polyps. PROCEDURE PERFORMED: Colonoscopybiopsy andhe biopsy snare polypectomy. PREOPERATIVE DIAGNOSIS: change in bowel habits. IV sedation per Anesthesia. PROCEDURE: After informed consent was obtained, the patient, was brought into the endoscopy unit. IV sedation was administered by Anesthesia under continuous monitoring. Digital rectal examination was normal. Initially the Olympus CF-160 flexible video colonoscope was then inserted in the rectum, gradually advanced into the cecum with moderate to severe difficulty. Careful examination was performed as the scope was gradually being withdrawn. Ileocecal valve and the appendiceal orifice were visualized and appeared normal. Prep was excellent. Mucosa of the cecum,appeared normal. In the ascending colon there was a 3 mm polyp removed by cold biopsy. Rest of the ascending colon, transverse colon, descending colon, sigmoid colon, and rectum appeared normal. in the proximal rectum there was a 7 minute a polyp that was removed by snare polypectomy. Moderate sigmoid diverticulosis seen.Retroflexion was performed in the rectum and no lesions were seen. The patient tolerated the procedure well. IMPRESSION: 3 mm ascending colon polyp status post cold biopsy 7 mm proximal rectal Polyp status post polypectomy Scattered sigmoid diverticulosis RECOMMENDATIONS: Findings of this examination were discussed with the patient as well as a family. She was advised to follow with the biopsy results. If the biopsy results adenoma she can have a repeat colonoscopy in 5 years..
[2022-02-27 14:48] VITALS: RESP 16
[2022-02-27 15:04] VITALS: BP 118/62; PULSE 75
== END 2022-02-27 15:35 | disposition home or self-care (01) ==
LOC: ORWHC2ENDO 11:21
PROVIDERS: ATTEND Internal Medicine Gastroenterology
DX: K62.1 Rectal polyp (principal); K57.30 Diverticulosis of large intestine without perforation or abscess without bleeding; K59.00 Constipation, unspecified; E78.5 Hyperlipidemia, unspecified; I10 Essential (primary) hypertension; Z87.891 Personal history of nicotine dependence; F32.A Depression, unspecified; M19.90 Unspecified osteoarthritis, unspecified site
CPT/HCPCS: 45380; 45385; J2704; J2001; 88305

== ENCOUNTER → 2022-08-11 | Outpatient (CLI) | payer MEDICARE ==
--- NOTE | 2022-08-11 11:21 | MM ---
Reason for Exam: Hx of breast cancer, mastectomy. Last mammogram was performed 1 year(s) and 1 month(s) ago. Patient History: Menarche at age 11. First Full-Term at age 21. Left ovary removed at age 45. Right ovary removed at age 43. Hysterectomy at age 43. Postmenopausal. Patient has history of breast feeding. Breast cancer, left, age 51. Previous chemotherapy at age 51. Estrogen, starting at age 45 for 5 years. Hormonal Contraceptives, starting at age 19 for 12 years. Tamoxifen for 5 years from age 51 until age 56. Core Biopsy on the Left side. 2001, Mastectomy on the Left side. 03/16/2002, Malignant Stereotactic Core Biopsy on the left side. Chemotherapy. 04/30/2009, Cancelled Right US Needle Biopsy on the right side. Prior Study Comparison: 10/12/2018 Right Diagnostic Mammogram, [facility]. 03/04/2020 Bilateral Screening Mammogram, [facility]. 07/08/2021 Right Diagnostic Mammogram, [facility]. Tissue Density: Right: The breast tissue is heterogeneously dense. This may lower the sensitivity of mammography. Findings: Analyzed By CAD. Slightly larger 4-5 round lesion right breast outer slightly upper aspect approximately 5 to 6 cm distance from nipple. Benign-appearing right axillary lymph nodes redemonstrated. Occasional tiny benign-appearing round and linear calcification redemonstrated. Overall Assessment: Incomplete: need additional imaging evaluation, BI-RAD 0 Management: Diagnostic Breast Ultrasound of the right breast. Targeted ultrasound evaluation. Electronically signed and approved by: Moncho Haney M.D.
--- NOTE | 2022-08-11 11:51 | USB ---
Reason for Exam: Additional evaluation requested from prior study. Patient History: Menarche at age 11. First Full-Term at age 21. Left ovary removed at age 45. Right ovary removed at age 43. Hysterectomy at age 43. Postmenopausal. Patient has history of breast feeding. Breast cancer, left, age 51. Previous chemotherapy at age 51. Estrogen, starting at age 45 for 5 years. Hormonal Contraceptives, starting at age 19 for 12 years. Tamoxifen for 5 years from age 51 until age 56. Core Biopsy on the Left side. 2001, Mastectomy on the Left side. 03/16/2002, Malignant Stereotactic Core Biopsy on the left side. Chemotherapy. 04/30/2009, Cancelled Right US Needle Biopsy on the right side. Technique: Method: Targeted. Patient Position: Supine. Prior Study Comparison: 10/12/2018 Right Diagnostic Mammogram, [facility]. 03/04/2020 Bilateral Screening Mammogram, [facility]. 07/08/2021 Right Diagnostic Mammogram, [facility]. Findings: The upper outer quadrant of the right breast, the axilla of the right breast and the retroareolar of the right breast were scanned. Targeted ultrasound right breast shows 8 x 5 x 6 mm bilobed thin-walled cyst without vascularity or posterior acoustic features that may be increased in size from the 2019 study if the same lesion. Overall Assessment: Probably benign, BI-RAD 3 Management: Diagnostic Breast Ultrasound of the right breast in 6 months. Precautionary short-term ultrasound follow-up. Results were given to the patient verbally at the time of exam. Electronically signed and approved by: Moncho Haney M.D.
== END | disposition home or self-care (01) ==
LOC: RADMAMWWP 10:47
PROVIDERS: ATTEND Family Medicine
DX: N60.01 Solitary cyst of right breast (principal); Z85.3 Personal history of malignant neoplasm of breast; Z78.0 Asymptomatic menopausal state; Z98.890 Other specified postprocedural states; Z90.12 Acquired absence of left breast and nipple
CPT/HCPCS: 77065; 76642; G0279; 77061

== ENCOUNTER → 2022-12-30 | Outpatient (CLI) | payer MEDICARE ==
--- NOTE | 2023-01-02 09:18 | MR ---
EXAMINATION TYPE: MR knee LT wo con DATE OF EXAM: 12/30/2022 COMPARISON: None HISTORY: Chronic left knee pain. TECHNIQUE: Multiplanar, multisequence imaging of the left knee is performed without IV contrast. FINDINGS: The examination is moderately limited by the patient's body habitus particularly for evaluation for m eniscal tears. There are marked osteoarthritic changes of the medial compartment the knee with near complete loss of the articular cartilage in the most medial aspect of the medial compartment. There are marked subcho ndral bone changes with chronic sclerosis but also focal edema in both the medial aspect of the media l tibial plateau and in the medial aspect of the medial femoral condyle. There is marked thinning of the medial meniscus and medial displacement of the body of the meniscus but no discrete tear is ident ified although the resolution of the exam limits evaluation for meniscal tear. The medial collateral ligament is intact. There is marked hypertrophic spurring of the medial compartment. There is moderate osteophytic changes lateral compartment knee with hypertrophic spurring and moderat e thinning of the articular cartilage. There is no definite lateral meniscal tear in the lateral eleanor ateral ligament is intact. There are subchondral bone changes within the medial aspect of the lateral tibial plateau. There is moderate to marked osteophytic change of the patellofemoral compartment where there is marke d thinning of the articular cartilage and hypertrophic spurring of the margins of the patella. There is a small joint effusion. There is soft tissue edema in the prepatellar soft tissues The cruciate ligaments are intact. IMPRESSION: 1. Limited evaluation of the menisci due to the patient's body habitus. No definite meniscal tear. 2. Tricompartment osteoarthritis severe in the medial compartment, moderate in the lateral compartmen t and moderate to severe in the patellofemoral compartment. 3. Small joint effusion. 4. No ligamentous injury. 5. Small areas of edema indicating bone contusion in the medial aspect of the medial femoral condyle and medial tibial plateau. No discrete fracture.
== END | disposition home or self-care (01) ==
LOC: RADMRIMAIN 10:47
PROVIDERS: ATTEND Orthopaedic Surgery
DX: M17.12 Unilateral primary osteoarthritis, left knee (principal); S80.02XA Contusion of left knee, initial encounter; M25.462 Effusion, left knee; X58.XXXA Exposure to other specified factors, initial encounter

== ENCOUNTER → 2023-02-15 | Outpatient (CLI) | payer MEDICARE ==
--- NOTE | 2023-02-15 12:51 | USB ---
Reason for Exam: Hx of breast cancer, mastectomy. Patient History: Menarche at age 11. First Full-Term at age 21. Left ovary removed at age 45. Right ovary removed at age 43. Hysterectomy at age 43. Postmenopausal. Patient has history of breast feeding. Breast cancer, left, age 51. Previous chemotherapy at age 51. Estrogen, starting at age 45 for 5 years. Hormonal Contraceptives, starting at age 19 for 12 years. Tamoxifen for 5 years from age 51 until age 56. Core Biopsy on the Left side. 2001, Mastectomy on the Left side. 03/16/2002, Malignant Stereotactic Core Biopsy on the left side. Chemotherapy. 04/30/2009, Cancelled Right US Needle Biopsy on the right side. Prior Study Comparison: 03/04/2020 Bilateral Screening Mammogram, [facility]. 07/08/2021 Right Diagnostic Mammogram, [facility]. 08/11/2022 Right MG 3D diag mammo w/cad RT, [facility]. Findings: The whole breast of the right breast was scanned. Right breast ultrasound demonstrates a 0.3 x 0.3 x 0.3cm cystic lesion at 9 o'clock. Overall Assessment: Benign, BI-RAD 2 Management: Screening Mammogram of the right breast in 1 year. A clinical breast exam by your physician is recommended on an annual basis and results should be correlated with mammographic findings. This exam should not preclude additional follow-up of suspicious palpable abnormalities. Results were given to the patient verbally at the time of exam. Electronically signed and approved by: Casa Rangel DO
== END | disposition home or self-care (01) ==
LOC: RADUSWWP 10:35
PROVIDERS: ATTEND Family Medicine
DX: R92.8 Other abnormal and inconclusive findings on diagnostic imaging of breast (principal); Z85.3 Personal history of malignant neoplasm of breast; Z78.0 Asymptomatic menopausal state

== ENCOUNTER 2023-03-11 12:29 | Observation (INO) | payer MEDICARE ==
[2023-03-11] MEDS ORDERED: MORPHINE SULFATE 4 MG/ML SYRINGE IVP STA (12:48)
--- NOTE | 2023-03-11 12:51 | ED ---
General Adult HPI - General Chief complaint: Chest Pain Stated complaint: Rib Pain Time Seen by Provider: 03/11/23 12:38 Source: patient, EMS, RN notes reviewed Mode of arrival: EMS Limitations: no limitations - History of Present Illness Initial comments: Patient is a pleasant 72-year-old female presenting to emergency department with concerns for right side pain. Onset of symptoms was mild last night, progressively worsening since that time. Discomfort is right lower rib/upper abdomen. No nausea vomiting. No constipation or diarrhea. Patient does have history of recent cough. Patient has been on antibiotics and steroids and this is improving. Cough has been nonproductive. No fevers. - Related Data Home Medications Medication Instructions Recorded Confirmed Atorvastatin [Lipitor] 40 mg PO HS 12/28/14 02/27/22 Clopidogrel [Plavix] 75 mg PO DAILY 12/28/14 02/27/22 Levothyroxine Sodium [Synthroid] 50 mcg PO DAILY 12/28/14 02/27/22 Losartan Potassium [Cozaar] 100 mg PO DAILY 12/28/14 02/27/22 Montelukast [Singulair] 10 mg PO DAILY 12/28/14 02/27/22 FLUoxetine HCL [PROzac] 10 mg PO DAILY 04/28/17 02/27/22 Potassium Chloride [Klor-Con 10] 10 meq PO DAILY 04/28/17 02/27/22 Cholecalciferol [Vitamin D3 (25 1,000 unit PO BID 10/23/19 02/27/22 Mcg = 1000 Iu)] Multivitamins, Thera [Multivitamin 1 tab PO DAILY 10/23/19 02/27/22 (formulary)] Vitamin B Complex 1 each PO DAILY 10/23/19 02/27/22 Calcium Carbonate/Vitamin D3 1 each PO BID 06/20/20 02/27/22 [Calcium 600-D3 20 mcg (800 Unit)] Furosemide [Lasix] 40 mg PO DAILY 06/20/20 02/27/22 Allergies Allergy/AdvReac Type Severity Reaction Status Date / Time metoprolol [From Toprol XL] Allergy very sleepy Verified 02/27/22 12:31 nickel Allergy Rash/Hives Verified 02/27/22 12:31 scents/perfume/soap Allergy Rash/Hives Uncoded 02/27/22 12:31 Review of Systems ROS Statement: Those systems with pertinent positive or pertinent negative responses have been documented in the HPI. ROS Other: All systems not noted in ROS Statement are negative. Constitutional: Denies: fever Eyes: Denies: eye pain ENT: Denies: ear pain Respiratory: Reports: as per HPI, cough. Denies: dyspnea Cardiovascular: Reports: as per HPI Endocrine: Denies: fatigue Gastrointestinal: Reports: as per HPI. Denies: nausea, vomiting, diarrhea, constipation Musculoskeletal: Denies: back pain Skin: Denies: rash Neurological: Denies: weakness Past Medical History Past Medical History: Cancer, Heart Failure, CVA/TIA, Hyperlipidemia, Hypertension, Mitral Valve Prolapse (MVP), Osteoarthritis (OA), Sleep Apnea/CPAP/BIPAP, Thyroid Disorder Additional Past Medical History / Comment(s): breast cancer, hx migraines, TIA 2018-no residual effects, heart murmur, pain left shoulder since shoulder surgery 09/2019, leaky aortic valve & will need replaced in future-following up w/Dr. Pastrana, edema jensen lower legs and ankles, "sleep apnea resolved after lap band surgery", past hx. colon polyps History of Any Multi-Drug Resistant Organisms: MRSA Date of last positivie culture/infection: 12-30-2014 MDRO Source:: abdominal wound Past Surgical History: Bariatric Surgery, Hysterectomy, Joint Replacement, Tubal Ligation Additional Past Surgical History / Comment(s): jensen carpal tunnel , lap band, Rt Knee replacement, Left breast masectomy. left shoulder replacement, cyst removed from wrist, colonoscopies, BILAT CATARACTS REMOVED WITH LENS IMPLANTS Past Anesthesia/Blood Transfusion Reactions: No Reported Reaction Past Psychological History: Depression Smoking Status: Former smoker Past Alcohol Use History: None Reported Past Drug Use History: None Reported - Past Family History Brother(s) Family Medical History: Cancer Mother Family Medical History: Cancer Father Additional Family Medical History / Comment(s): Mulitipul myloma, General Exam Limitations: no limitations General appearance: alert, in no apparent distress Head exam: Present: normocephalic Eye exam: Present: normal appearance Neck exam: Present: normal inspection Respiratory exam: Present: normal lung sounds bilaterally, chest wall tenderness (Right lower lateral ribs) Cardiovascular Exam: Present: regular rate, normal rhythm, normal heart sounds Expanded Peripheral pulses: 2+: Radial (R), Radial (L), Posterior Tibialis (R), Posterior Tibialis (L) GI/Abdominal exam: Present: soft, tenderness (Right upper quadrant moderate tenderness), normal bowel sounds. Absent: distended, pulsatile mass Extremities exam: Present: normal inspection. Absent: pedal edema, calf tenderness Neurological exam: Present: alert Psychiatric exam: Present: normal affect, normal mood Skin exam: Present: normal color Course Vital Signs 03/11/23 12:30 Temperature 98.2 F Pulse Rate 92 Respiratory 18 Rate Blood Pressure 166/83 O2 Sat by Pulse 96 Oximetry EKG Findings - EKG Results: EKG: interpreted by ERMD (LVH criteria.), sinus rhythm, normal axis, normal ST/T Medical Decision Making - Medical Decision Making Was pt. sent in by a medical professional or institution ([facility], WATERSHED COORDINATOR, urgent care, hospital, or fci...) When possible be specific @ -No Did you speak to anyone other than the patient for history (EMS, parent, family, police, friend...)? What history was obtained from this source @ -No Did you review nursing and triage notes (agree or disagree)? Why? @ -I reviewed and agree with nursing and triage notes Were old charts reviewed (outside hosp., previous admission, EMS record, old EKG, old radiological studies, urgent care reports/EKG's, fci records)? Report findings @ -No old charts were reviewed Differential Diagnosis (chest pain, altered mental status, abdominal pain women, abdominal pain men, vaginal bleeding, weakness, fever, dyspnea, syncope, hea dache, dizziness, GI bleed, back pain, seizure, CVA, palpatations, mental health, musculoskeletal)? @ -Differential Abdominal Pain Women: Appendicitis, Cholecystitis, diverticulosis, ischemic bowel, pancreatitis, hepatitis, UTI, gastroenteritis, AAA, incarcerated hernia, bowel obstruction, constipation, inflammatory bowel, hepatitis, peptic ulcer disease, splenic infarction, perforated viscus, vulvitis, ovarian torsion, PID, kidney stone, placenta abruption, this is not meant to be an all-inclusive list EKG interpreted by me (3pts min.). @ -As above X-rays interpreted by me (1pt min.). @ -Chest and abdominal x-ray revealed no acute abnormalities CT interpreted by me (1pt min.). @ -None done U/S interpreted by me (1pt. min.). @ -Are report reviewed What testing was considered but not performed or refused? (CT, X-rays, U/S, labs)? Why? @ -Computed tomography scan will be ordered secondary to dilation of common bile duct. What meds were considered but not given or refused? Why? @ -None Did you discuss the management of the patient with other professionals (professionals i.e. Dr., PA, WATERSHED COORDINATOR, lab, RT, psych nurse, protective services social worker, gas engine performance engineer, teacher, donor relations officer, field nurse case manager)? Give summary @ -Case was discussed with Dr. Rosenberg who will admit his patient Was smoking cessation discussed for >3mins.? @ -No Was critical care preformed (if so, how long)? @ -No Were there social determinants of health that impacted care today? How? (Homelessness, low income, unemployed, alcoholism, drug addiction, transportat ion, low edu. Level, literacy, decrease access to med. care, alf, rehab)? @ -No Was there de-escalation of care discussed even if they declined (Discuss DNR or withdrawal of care, Hospice)? DNR status @ -No What co-morbidities impacted this encounter? (DM, HTN, Smoking, COPD, CAD, Cancer, CVA, ARF, Chemo, Hep., AIDS, mental health diagnosis, sleep apnea, morbid obesity)? @ -None Was patient admitted / discharged? Hospital course, mention meds given and route, prescriptions, significant lab abnormalities, going to OR and other pertinent info. @ -Patient reevaluated and is feeling better. Patient will be admitted with GI consult and computed tomography scan of the abdomen pelvis. In addition patient did have near syncopal episode while going for x-rays. Patient will be monitored for this. Undiagnosed new problem with uncertain prognosis? @ -No Drug Therapy requiring intensive monitoring for toxicity (Heparin, Nitro, Insulin, Cardizem)? @ -No Were any procedures done? @ -No Diagnosis/symptom? @ -Abdominal pain, near syncope Acute, or Chronic, or Acute on Chronic? @ -Acute, acute Uncomplicated (without systemic symptoms) or Complicated (systemic symptoms)? @ -default Side effects of treatment? @ -No Exacerbation, Progression, or Severe Exacerbation? @ -No Poses a threat to life or bodily function? How? (Chest pain, [place], [place], pneumonia, PE, COPD, DKA, ARF, appy, cholecystitis, CVA, Diverticulitis, Homicidal, Suicidal, threat to staff... and all critical care pts) @ -No - Lab Data Result diagrams: 03/11/23 12:55 03/11/23 12:55 Lab Results 03/11/23 03/11/23 03/11/23 Range/Units 12:55 12:55 12:55 WBC 12.5 H (3.8-10.6) k/uL RBC 4.37 (3.80-5.40) m/uL Hgb 12.8 (11.4-16.0) gm/dL Hct 38.9 (34.0-46.0) % MCV 89.2 (80.0-100.0) fL MCH 29.4 (25.0-35.0) pg MCHC 32.9 (31.0-37.0) g/dL RDW 15.4 (11.5-15.5) % Plt Count 357 (150-450) k/uL MPV 6.7 Neutrophils % 85 % Lymphocytes % 11 % Monocytes % 3 % Eosinophils % 0 % Basophils % 0 % Neutrophils # 10.6 H (1.3-7.7) k/uL Lymphocytes # 1.4 (1.0-4.8) k/uL Monocytes # 0.4 (0-1.0) k/uL Eosinophils # 0.0 (0-0.7) k/uL Basophils # 0.0 (0-0.2) k/uL Hypochromasia Slight PT 10.3 (10.0-12.5) sec INR 0.9 (<1.2) APTT 24.0 (22.0-30.0) sec D-Dimer 0.49 (<0.60) mg/L FEU Sodium (137-145) mmol/L Potassium (3.5-5.1) mmol/L Chloride (98-107) mmol/L Carbon Dioxide (22-30) mmol/L Anion Gap mmol/L BUN (7-17) mg/dL Creatinine (0.52-1.04) mg/dL Est GFR (CKD-EPI)AfAm (>60 ml/min/1.73 sqM) Est GFR (CKD-EPI)NonAf (>60 ml/min/1.73 sqM) Glucose (74-99) mg/dL Calcium (8.4-10.2) mg/dL Total Bilirubin (0.2-1.3) mg/dL AST (14-36) U/L ALT (4-34) U/L Alkaline Phosphatase (38-126) U/L Troponin I (0.000-0.034) ng/mL Total Protein (6.3-8.2) g/dL Albumin (3.5-5.0) g/dL Amylase (30-110) U/L Lipase (23-300) U/L Urine Color Colorless Urine Appearance Clear (Clear) Urine pH 6.0 (5.0-8.0) Ur Specific [place] 1.006 (1.001-1.035) Urine Protein Negative (Negative) Urine Glucose (UA) Negative (Negative) Urine Ketones Negative (Negative) Urine Blood Negative (Negative) Urine Nitrite Negative (Negative) Urine Bilirubin Negative (Negative) Urine Urobilinogen <2.0 (<2.0) mg/dL Ur Leukocyte Esterase Negative (Negative) 03/11/23 03/11/23 Range/Units 12:55 12:55 WBC (3.8-10.6) k/uL RBC (3.80-5.40) m/uL Hgb (11.4-16.0) gm/dL Hct (34.0-46.0) % MCV (80.0-100.0) fL MCH (25.0-35.0) pg MCHC (31.0-37.0) g/dL RDW (11.5-15.5) % Plt Count (150-450) k/uL MPV Neutrophils % % Lymphocytes % % Monocytes % % Eosinophils % % Basophils % % Neutrophils # (1.3-7.7) k/uL Lymphocytes # (1.0-4.8) k/uL Monocytes # (0-1.0) k/uL Eosinophils # (0-0.7) k/uL Basophils # (0-0.2) k/uL Hypochromasia PT (10.0-12.5) sec INR (<1.2) APTT (22.0-30.0) sec D-Dimer (<0.60) mg/L FEU Sodium 138 (137-145) mmol/L Potassium 3.7 (3.5-5.1) mmol/L Chloride 99 (98-107) mmol/L Carbon Dioxide 29 (22-30) mmol/L Anion Gap 10 mmol/L BUN 21 H (7-17) mg/dL Creatinine 0.57 (0.52-1.04) mg/dL Est GFR (CKD-EPI)AfAm >90 (>60 ml/min/1.73 sqM) Est GFR (CKD-EPI)NonAf >90 (>60 ml/min/1.73 sqM) Glucose 105 H (74-99) mg/dL Calcium 9.7 (8.4-10.2) mg/dL Total Bilirubin 0.8 (0.2-1.3) mg/dL AST 33 (14-36) U/L ALT 29 (4-34) U/L Alkaline Phosphatase 109 (38-126) U/L Troponin I <0.012 (0.000-0.034) ng/mL Total Protein 7.6 (6.3-8.2) g/dL Albumin 4.6 (3.5-5.0) g/dL Amylase 56 (30-110) U/L Lipase 121 (23-300) U/L Urine Color Urine Appearance (Clear) Urine pH (5.0-8.0) Ur Specific [place] (1.001-1.035) Urine Protein (Negative) Urine Glucose (UA) (Negative) Urine Ketones (Negative) Urine Blood (Negative) Urine Nitrite (Negative) Urine Bilirubin (Negative) Urine Urobilinogen (<2.0) mg/dL Ur Leukocyte Esterase (Negative) Disposition Clinical Impression: Abdominal pain, Near syncope Disposition: ADMITTED IP TO THIS HOSP Is patient prescribed a controlled substance at d/c from ED?: No Referrals: Valente Maradiaga MD [Primary Care Provider] - 1-2 days Time of Disposition: 15:40
[2023-03-11 13:21] LABS: Appearance,Urine Clear (Clear); Bilirubin,Urine Negative (Negative); Blood,Urine Negative (Negative); Color,Urine Colorless; Glucose,Urine (UA) Negative (Negative); Ketones,Urine Negative (Negative); Leukocyte Esterase,Urine Negative (Negative); Nitrite,Urine Negative (Negative); Protein,Urine Negative (Negative); Specific Gravity,Urine 1.006 (1.001-1.035); Urobilinogen,Urine <2.0 mg/dL (<2.0)
[2023-03-11 13:23] LABS: Basophils % (A) 0 %; Eosinophils % (A) 0 %; HCT 38.9 % (34.0-46.0); HGB 12.8 gm/dL (11.4-16.0); Hypochromasia Slight; Lymphocytes # (A) 1.4 k/uL (1.0-4.8); Lymphocytes % (A) 11 %; MCH 29.4 pg (25.0-35.0); MCHC 32.9 g/dL (31.0-37.0); MCV 89.2 fL (80.0-100.0); Mean Platelet Volume 6.7; Monocytes # (A) 0.4 k/uL (0-1.0); Monocytes % (A) 3 %; Neutrophils # (A) 10.6 k/uL (1.3-7.7); Neutrophils % (A) 85 %; Platelet Count 357 k/uL (150-450); RBC 4.37 m/uL (3.80-5.40); RDW 15.4 % (11.5-15.5); WBC 12.5 k/uL (3.8-10.6)
--- NOTE | 2023-03-11 13:28 | XR ---
EXAMINATION TYPE: XR chest 2V DATE OF EXAM: 03/11/2023 COMPARISON: 08/05/2020 HISTORY: Shortness of breath TECHNIQUE: Frontal and lateral views of the chest are obtained. FINDINGS: Scattered senescent parenchymal changes noted. Hyperinflation compatible with COPD. No evidence for infiltrate. No evidence for atelectasis. Heart size is stable. Mediastinal structures are stable and grossly unremarkable. No evidence for hilar prominence. Degenerative changes dorsal spine. IMPRESSION: 1. No evidence for acute pulmonary disease.
[2023-03-11 13:39] LABS: INR 0.9 (<1.2); Prothrombin Time 10.3 sec (10.0-12.5)
[2023-03-11 13:46] LABS: ALT 29 U/L (4-34); AST 33 U/L (14-36); African American GFR (CKD) >90 (>60 ml/min/1.73 sqM); Albumin 4.6 g/dL (3.5-5.0); Alkaline Phosphatase 109 U/L (38-126); Amylase 56 U/L (30-110); Anion Gap 10 mmol/L; Blood Urea Nitrogen 21 mg/dL (7-17); Calcium 9.7 mg/dL (8.4-10.2); Carbon Dioxide 29 mmol/L (22-30); Chloride 99 mmol/L (98-107); Glucose 105 mg/dL (74-99); Lipase 121 U/L (23-300); Non-African American GFR(CKD) >90 (>60 ml/min/1.73 sqM); Potassium 3.7 mmol/L (3.5-5.1); Sodium 138 mmol/L (137-145); Total Bilirubin 0.8 mg/dL (0.2-1.3); Total Protein 7.6 g/dL (6.3-8.2)
--- NOTE | 2023-03-11 13:49 | XR ---
EXAMINATION TYPE: XR KUB DATE OF EXAM: 03/11/2023 COMPARISON: NONE HISTORY: Pain TECHNIQUE: Single supine KUB image of the abdomen is obtained FINDINGS: Small bowel demonstrates no evidence for dilatation or air fluid levels. Gas and fecal material is seen in non-distended colon. No convincing evidence for pneumoperitoneum. No unusual calcifications. Changes of laparoscopic banding procedure. The lung bases are clear. The osseous structures are intact. IMPRESSION: 1. Overall nonobstructive bowel gas pattern.
--- NOTE | 2023-03-11 14:49 | US ---
EXAMINATION TYPE: US gallbladder DATE OF EXAM: 03/11/2023 COMPARISON: NONE CLINICAL INDICATION: Female, 72 years old with history of RUQ pain since this am TECHNIQUE: Multiple sonographic images of the right upper quadrant are obtained. FINDINGS: EXAM MEASUREMENTS: Liver Length: 14.2 cm Gallbladder Wall: 0.3 cm CBD: 0.8 cm Right Kidney: 12.3 x 5.6 x 6.1 cm MANAGER INVENTORY NOTES:difficult exam - patient not able to tolerate probe pressure Pancreas: Obscured by bowel gas Liver: Mildly coarsened echo pattern Gallbladder: No gallstones could not exclude a small amount of dependent sludge small amount sludge. Evidence for sonographic Quick's sign: yes CBD: wnl Right Kidney: wnl IMPRESSION: 1. No evidence of gallstones The common bile duct is prominent in size 8 mm. Distal CBD pathology in the differential diagnosis. 2. Liver is somewhat coarse in correlate for underlying hepatocellular disease.
[2023-03-11] MEDS ORDERED: IOPAMIDOL CONTRAST (ORAL USE) VIAL PO PRN (15:41)
[2023-03-11] MEDS ORDERED: ONDANSETRON 4 MG/2 ML VIAL IVP PRN (15:42)
[2023-03-11] MEDS ORDERED: HYDROmorphone 0.5 MG/0.5 ML SYRINGE IVP PRN (15:42)
[2023-03-11] MEDS ORDERED: HYDROmorphone 1 MG/ML 1 ML SYRINGE IVP PRN (15:42)
[2023-03-11] MEDS ORDERED: NALOXONE 0.4 MG/ML 1 ML VIAL IV PRN (15:42)
[2023-03-11] MEDS: SODIUM CHLORIDE 0.9% 1,000 ML IV SCH ×2 (15:55→22:28)
--- NOTE | 2023-03-11 21:18 | CT ---
EXAMINATION TYPE: CT abdomen pelvis w con DATE OF EXAM: 03/11/2023 HISTORY: RT side rib pain, no trauma. CT DLP: 1867.4mGycm Automated Exposure Control for Dose Reduction was Utilized. CONTRAST: CT scan of the abdomen and pelvis is performed with IV Contrast, patient injected with 100 ml mL of Isovue 300. COMPARISON: 08/07/2012 FINDINGS: LUNG BASES: No acute pulmonary/pleural process. However, there is mild cardiomegaly, very prominent p ericardial calcification, marked aortic valve calcifications, and coronary calcifications. LIVER/GB: No significant abnormality is appreciated. PANCREAS: No significant abnormality is seen. SPLEEN: No significant abnormality is seen. ADRENALS: No significant abnormality is seen. KIDNEYS: No significant abnormality is seen. BOWEL: No bowel dilation. No focal inflammatory process. Lap band noted. ABDOMINAL WALL: Immediately superficial to the right lower ribs there is marked swelling of the abdom inal wall musculature and this process extends superficially to nearly the skin surface as edematous change. Within the muscular swelling is a 8 cm AP x 5 cm TV x 8 cm CC mildly hyperdense component, blackwell spicious for hematoma. There is no associated drainable fluid collection. There is no soft tissue emphysema. PELVIC VISCERA: No gross abnormality seen. VASCULATURE: No acute process. LYMPH NODES: No greater than 1cm abdominal or pelvic lymph nodes are appreciated. OSSEOUS STRUCTURES: No significant abnormality is seen. IMPRESSION: Right lateral abdominal wall findings correlate with the patient's symptoms. * Incidental: Markedly prominent pericardial calcification, marked aortic valve calcifications, and coronary calcifications.
[2023-03-12] MEDS: SODIUM CHLORIDE 0.9% 1,000 ML IV SCH (06:23)
[2023-03-12] MEDS ORDERED: PANTOPRAZOLE 40 MG/10 ML VIAL IV SCH (09:00)
[2023-03-12] MEDS ORDERED: LOSARTAN 50 MG TAB PO SCH (09:00)
[2023-03-12] MEDS ORDERED: FUROSEMIDE 40 MG TAB PO SCH (09:00)
[2023-03-12] MEDS ORDERED: FLUoxetine HCL 20 MG CAP PO SCH (09:00)
[2023-03-12] MEDS ORDERED: LEVOTHYROXINE 50 MCG TAB PO SCH (09:00)
--- NOTE | 2023-03-12 09:31 | P.HPIM ---
History of Present Illness H&P Date: 03/12/23 Chief Complaint: Right-sided abdominal pain History and Physical and Discharge Summary: This is a pleasant 72-year-old female, past medical history significant for osteoarthritis, diastolic CHF,mitral valve prolapse, hypertension, hypothyroid,TIA, breast cancer and multiple other medical issues, recently started on Medrol Dosepak and Z-Moy for bronchitis, presented to the ER with complaints of significant right-sided abdominal pain. Denies syncope. Denies trauma. Patient reported she had been coughing since Wednesday night accompanied right sided abdominal pain that progressed. States she is normally on Plavix and aspirin but states has been on hold for upcoming surgery. Denies chest pain, palpitations or shortness of breath. Reports cough improving. Chest x-ray reported no evidence for acute pulmonary disease. KUB reported overall no nobstructive bowel gas pattern. Gallbladder ultrasound reported no gallstones, common bile duct prominent size 8 mm, liver -mildly coarsened echo pattern. CT of abdomen and pelvis reporting right lateral abdominal wall, superficial to the right lower ribs marketed swelling of the abdominal wall musculature extending superficially to nearly the skin surface as edematous change; within the muscul ar swelling is an 8 cm AP by 5 cm TV by 8 cm cc hyperdense component, suspicious for hematoma. Afebrile, WBC 12.5. Hemoglobin 12.8, platelets 357, INR 0.9, d- dimer 0.49.Sodium 138 potassium 3.7 BUN 21 creatinine 0.57 glucose 105, t- bilirubin 0.8 AST 33 ALT 29 alkaline phosphatase 109 amylase 56 lipase 121. UA negative. Received IV push Dilaudid with pain improved. Review of Systems Review of Systems All systems: negative Constitutional: Denies chills, Denies fever Eyes: denies blurred vision, denies pain Ears, nose, mouth and throat: Denies headache, Denies sore throat Cardiovascular: Reports edema, Denies chest pain, palpitations. Respiratory: Improving cough, denies shortness of breath Gastrointestinal: Right lateral abdominal pain, Denies diarrhea, Denies nausea, Denies vomiting Genitourinary: Denies dysuria, Denies hematuria Musculoskeletal: Reports as per HPI, Reports limitation of motion, Denies myalgias Integumentary: Denies pruritus, Denies rash Neurological: Denies numbness, Denies weakness Psychiatric: Denies anxiety, Denies depression Endocrine: Denies fatigue, Denies weight change Past Medical History Past Medical History: Cancer, Heart Failure, CVA/TIA, Hyperlipidemia, Hypertension, Mitral Valve Prolapse (MVP), Osteoarthritis (OA), Sleep Apnea/CPAP/BIPAP, Thyroid Disorder Additional Past Medical History / Comment(s): breast cancer, hx migraines, TIA 2018-no residual effects, heart murmur, pain left shoulder since shoulder s urgery 09/2019, leaky aortic valve & will need replaced in future-following up w/Dr. Pastrana, edema jensen lower legs and ankles, "sleep apnea resolved after lap band surgery", past hx. colon polyps History of Any Multi-Drug Resistant Organisms: MRSA Date of last positivie culture/infection: 12-30-2014 MDRO Source:: abdominal wound Past Surgical History: Bariatric Surgery, Hysterectomy, Joint Replacement, Tubal Ligation Additional Past Surgical History / Comment(s): jensen carpal tunnel , lap band, Rt Knee replacement, Left breast masectomy. left shoulder replacement, cyst removed from wrist, colonoscopies, BILAT CATARACTS REMOVED WITH LENS IMPLANTS Past Anesthesia/Blood Transfusion Reactions: No Reported Reaction Past Psychological History: Depression Smoking Status: Former smoker Past Alcohol Use History: None Reported Past Drug Use History: None Reported - Past Family History Brother(s) Family Medical History: Cancer Mother Family Medical History: Cancer Father Additional Family Medical History / Comment(s): Mulitipul myloma, Medications and Allergies Home Medications Medication Instructions Recorded Confirmed Type Atorvastatin [Lipitor] 20 mg PO HS 12/28/14 03/11/23 History Levothyroxine Sodium [Synthroid] 50 mcg PO DAILY 12/28/14 03/11/23 History Losartan Potassium [Cozaar] 100 mg PO DAILY 12/28/14 03/11/23 History Montelukast [Singulair] 10 mg PO HS 12/28/14 03/11/23 History FLUoxetine HCL [PROzac] 20 mg PO DAILY 04/28/17 03/11/23 History Potassium Chloride [Klor-Con 10 ER] 10 meq PO DAILY@1200 04/28/17 03/11/23 History Multivitamins, Thera [Multivitamin 1 tab PO DAILY 10/23/19 03/11/23 History (formulary)] Vitamin B Complex 1 cap PO DAILY 10/23/19 03/11/23 History Furosemide [Lasix] 40 mg PO DAILY 06/20/20 03/11/23 History Acetaminophen Tab [Tylenol] 650 mg PO Q6H PRN 03/11/23 03/11/23 History Albuterol Sulfate [Albuterol 1 - 2 puff PO RT-Q6H PRN 03/11/23 03/11/23 History Sulfate Hfa] Calcium Citrate/Vitamin D3 2 tab PO DAILY 03/11/23 03/11/23 History [Calcium Cit-Vit D3 500 mg Chew] Cholecalciferol [Vitamin D3 (25 25 mcg PO BID 03/11/23 03/11/23 History Mcg = 1000 Iu)] Fluticasone Nasal [place] [Flonase 1 spray EA NOSTRIL DAILY 03/11/23 03/11/23 History Nasal [place]] Potassium Chloride [Klor-Con M10] 10 meq PO Q2D@2100 03/11/23 03/11/23 History Vit C/E/Zn/Coppr/Lutein/Zeaxan 1 cap PO DAILY 03/11/23 03/11/23 History [Preservision Areds 2 Softgel] calcium polycarbophiL [Fiber-Lax] 1,250 mg PO DAILY 03/11/23 03/11/23 History guaiFENesin-DM 100-10MG/5ML 10 ml PO Q6H PRN 03/11/23 03/11/23 History [Robitussin DM] methylPREDNISolone [Medrol Dose See Taper PO DIRECTED 03/11/23 03/11/23 History Pack] Clopidogrel [Plavix] 75 mg PO HS #0 03/12/23 03/11/23 Rx Allergies Allergy/AdvReac Type Severity Reaction Status Date / Time metoprolol [From Toprol XL] Allergy very sleepy Verified 03/11/23 15:52 nickel Allergy Rash/Hives Verified 03/11/23 15:52 scents/perfume/soap Allergy Rash/Hives Uncoded 03/11/23 15:52 Physical Exam Vitals: Vital Signs Temp Pulse Resp BP Pulse Ox 03/12/23 08:00 82 18 113/65 92 L 03/12/23 06:23 97.7 F 75 17 93/54 97 03/12/23 05:30 76 19 99/56 95 03/12/23 05:00 70 16 101/46 95 03/12/23 04:00 69 17 93/42 95 03/12/23 03:30 67 19 93/42 95 03/12/23 03:00 75 19 114/40 95 03/12/23 02:30 78 17 114/40 03/12/23 01:30 69 16 101/53 96 03/12/23 00:00 70 17 100/54 95 03/11/23 23:30 74 18 94/56 95 03/11/23 23:00 71 18 94/56 96 03/11/23 22:00 68 111/49 96 03/11/23 21:49 67 18 111/49 96 03/11/23 21:44 71 105/50 95 03/11/23 16:00 78 18 138/74 97 03/11/23 12:30 98.2 F 92 18 166/83 96 Gen.: Well-developed, well-nourished white female, sitting up in chair, in no acute distress HEENT: Normocephalic, atraumatic, mucous membranes moist Neck: Supple, no thyromegaly, no JVD CV: Regular rate and rhythm, no murmur. No edema Lungs: Unlabored, equal air entry, scattered rhonchi in bilateral bases. Abdomen: Soft, right flank tenderness with hematoma, superficial to right lower ribs, palpable, no guarding, no rigidity. +BS Extremities: No clubbing, no cyanosis, no calf tenderness Neuro: Alert and oriented 3 no focal deficits Skin: Warm and dry, no rashes noted Results CBC & Chem 7: 03/12/23 05:54 03/12/23 05:54 Labs: Abnormal Lab Results - Last 24 Hours (Table) 03/11/23 03/11/23 Range/Units 12:55 12:55 WBC 12.5 H (3.8-10.6) k/uL Neutrophils # 10.6 H (1.3-7.7) k/uL BUN 21 H (7-17) mg/dL Glucose 105 H (74-99) mg/dL Assessment and Plan Assessment: Hematoma, right abdominal musculature wall , minimally dilated CBD-cleared by GI. Recent bronchitis, currently on Z-Moy and Medrol Dosepak Hypertension Hyperlipidemia Hypothyroidism Depression Morbid obesity, BMI 46 Incidental markedly prominent pericardial calcification, marked aortic valve calcifications and coronary calcifications reported per CT Plan: Continue on current medication regime ,monitoring and symptomatic treatment. Significant relief with IV Dilaudid. Offered [place] or tramadol at [place], patient declined .states she'll manage her pain with Tylenol. Evaluated by GI, and cleared for discharge. Reports she is currently off aspirin and Plavix for upcoming surgical procedure. Patient will be discharged home today in a stable condition with guarded prognosis. Discharge Medication List Atorvastatin [Lipitor] 20 mg PO HS 12/28/14 [History] Levothyroxine Sodium [Synthroid] 50 mcg PO DAILY 12/28/14 [History] Losartan Potassium [Cozaar] 100 mg PO DAILY 12/28/14 [History] Montelukast [Singulair] 10 mg PO HS 12/28/14 [History] FLUoxetine HCL [PROzac] 20 mg PO DAILY 04/28/17 [History] Potassium Chloride [Klor-Con 10 ER] 10 meq PO DAILY@1200 04/28/17 [History] Multivitamins, Thera [Multivitamin (formulary)] 1 tab PO DAILY 10/23/19 [History] Vitamin B Complex 1 cap PO DAILY 10/23/19 [History] Furosemide [Lasix] 40 mg PO DAILY 06/20/20 [History] Acetaminophen Tab [Tylenol] 650 mg PO Q6H PRN 03/11/23 [History] Albuterol Sulfate [Albuterol Sulfate Hfa] 1 - 2 puff PO RT-Q6H PRN 03/11/23 [History] Calcium Citrate/Vitamin D3 [Calcium Cit-Vit D3 500 mg Chew] 2 tab PO DAILY 03/11/23 [History] Cholecalciferol [Vitamin D3 (25 Mcg = 1000 Iu)] 25 mcg PO BID 03/11/23 [History] Fluticasone Nasal [place] [Flonase Nasal [place]] 1 spray EA NOSTRIL DAILY 03/11/23 [History] Potassium Chloride [Klor-Con M10] 10 meq PO Q2D@2100 03/11/23 [History] Vit C/E/Zn/Coppr/Lutein/Zeaxan [Preservision Areds 2 Softgel] 1 cap PO DAILY 03/11/23 [History] calcium polycarbophiL [Fiber-Lax] 1,250 mg PO DAILY 03/11/23 [History] guaiFENesin-DM 100-10MG/5ML [Robitussin DM] 10 ml PO Q6H PRN 03/11/23 [History] methylPREDNISolone [Medrol Dose Pack] See Taper PO DIRECTED 03/11/23 [Histor y] Clopidogrel [Plavix] 75 mg PO HS #0 03/12/23 [Rx] The impression and plan of care has been dictated as directed. : I performed a history and examination of this patient, discussed the same with the dictator. I agree with the dictator's note ,documented as a scribe. Any additional findings or plans will be noted.
--- NOTE | 2023-03-12 09:59 | P.CONS ---
History of Present Illness - Reason for Consult Consult date: 03/12/23 Abdominal pain, CBD dilation Requesting physician: Harlan Gongora - Chief Complaint Right-sided abdominal pain - History of Present Illness This is a pleasant 72-year-old female who presented to the emergency department for severe pain in her right side and flank. She states that she had some discomfort over the last day, it started after she was coughing. She has a past medical history including TIA, heart failure, hyperlipidemia, hypertension, mitral valve prolapse, thyroid disorder, history of breast cancer and has recently been being treated for bronchiolitis currently on a Z-Moy and steroid taper dose. She normally takes Plavix and aspirin however that has been on hold for upcoming surgery. She denies any known fall or injury. She continues to have cough, and some occasional shortness of breath but no chest pain. Again she is reporting her pain to her right side and flank which is very tender to palpation. States pain is better today she's been treated with some pain medication. She denies any nausea or vomiting. They did a CAT scan of the abdomen and pelvis which reported right lateral abdominal wall swelling within the abdominal wall muscular suspicious for hematoma. Also underwent gallbladder ultrasound which reported mildly coarsened echo pattern of the liver, no gallstones in the gallbladder, common bile duct is prominent in size 8 mm. Distal CBD pathology in the differential diagnosis. Gastroenterology was consulted for abdominal pain and CBD dilation. Labs WBC 12.5 hemoglobin 12.8 hematocrit 38 platelet count 357,000 INR 0.9 d-dimer 0.49 sodium 138 potassium 3.7 BUN 21 creatinine 0.57 glucose 105 total bilirubin 0.8 AST 33 ALT 29 alkaline phosphatase 109 amylase 56 lipase 121 Review of Systems REVIEW OF SYSTEMS: CARDIOPULMONARY: No chest pain, patient has cough, shortness of breath. Gastrointestinal: Patient denies any epigastric or right upper quadrant abdominal pain. Complains of right side and flank pain. No nausea or vomiting. No hematemesis, coffee-ground emesis. No rectal bleeding, or melena. GENITOURINARY: No dysuria or hematuria. MUSCULOSKELETAL: Reports normal range of motion., Joint pain. SKIN: No rashes. No jaundice. ENDOCRINE: No chills, fevers. No excessive weight gain or loss. No polydipsia or polyuria. PSYCHIATRIC: Unremarkable. NEUROLOGY: No change in mental status. Denies dizziness, headache. ENT: Vision unremarkable. CONSTITUTIONAL: No recent weight loss. No fever, chills, night sweats. Past Medical History Past Medical History: Cancer, Heart Failure, CVA/TIA, Hyperlipidemia, Hypertension, Mitral Valve Prolapse (MVP), Osteoarthritis (OA), Sleep Apnea/CPAP/BIPAP, Thyroid Disorder Additional Past Medical History / Comment(s): breast cancer, hx migraines, TIA 2018-no residual effects, heart murmur, pain left shoulder since shoulder surgery 09/2019, leaky aortic valve & will need replaced in future-following up w/Dr. Pastrana, edema jensen lower legs and ankles, "sleep apnea resolved after lap band surgery", past hx. colon polyps History of Any Multi-Drug Resistant Organisms: MRSA Year Discovered:: 12-30-2014 MDRO Source:: abdominal wound Past Surgical History: Bariatric Surgery, Hysterectomy, Joint Replacement, Tubal Ligation Additional Past Surgical History / Comment(s): jensen carpal tunnel , lap band, Rt Knee replacement, Left breast masectomy. left shoulder replacement, cyst removed from wrist, colonoscopies, BILAT CATARACTS REMOVED WITH LENS IMPLANTS Past Anesthesia/Blood Transfusion Reactions: No Reported Reaction Past Psychological History: Depression Smoking Status: Former smoker Past Alcohol Use History: None Reported Past Drug Use History: None Reported - Past Family History Brother(s) Family Medical History: Cancer Mother Family Medical History: Cancer Father Additional Family Medical History / Comment(s): Mulitipul myloma, Medications and Allergies Home Medications Medication Instructions Recorded Confirmed Type Atorvastatin [Lipitor] 20 mg PO HS 12/28/14 03/11/23 History Levothyroxine Sodium [Synthroid] 50 mcg PO DAILY 12/28/14 03/11/23 History Losartan Potassium [Cozaar] 100 mg PO DAILY 12/28/14 03/11/23 History Montelukast [Singulair] 10 mg PO HS 12/28/14 03/11/23 History FLUoxetine HCL [PROzac] 20 mg PO DAILY 04/28/17 03/11/23 History Potassium Chloride [Klor-Con 10 ER] 10 meq PO DAILY@1200 04/28/17 03/11/23 H istory Multivitamins, Thera [Multivitamin 1 tab PO DAILY 10/23/19 03/11/23 History (formulary)] Vitamin B Complex 1 cap PO DAILY 10/23/19 03/11/23 History Furosemide [Lasix] 40 mg PO DAILY 06/20/20 03/11/23 History Acetaminophen Tab [Tylenol] 650 mg PO Q6H PRN 03/11/23 03/11/23 History Albuterol Sulfate [Albuterol 1 - 2 puff PO RT-Q6H PRN 03/11/23 03/11/23 History Sulfate Hfa] Calcium Citrate/Vitamin D3 2 tab PO DAILY 03/11/23 03/11/23 History [Calcium Cit-Vit D3 500 mg Chew] Cholecalciferol [Vitamin D3 (25 25 mcg PO BID 03/11/23 03/11/23 History Mcg = 1000 Iu)] Fluticasone Nasal [place] [Flonase 1 spray EA NOSTRIL DAILY 03/11/23 03/11/23 History Nasal [place]] Potassium Chloride [Klor-Con M10] 10 meq PO Q2D@2100 03/11/23 03/11/23 History Vit C/E/Zn/Coppr/Lutein/Zeaxan 1 cap PO DAILY 03/11/23 03/11/23 History [Preservision Areds 2 Softgel] calcium polycarbophiL [Fiber-Lax] 1,250 mg PO DAILY 03/11/23 03/11/23 History guaiFENesin-DM 100-10MG/5ML 10 ml PO Q6H PRN 03/11/23 03/11/23 History [Robitussin DM] methylPREDNISolone [Medrol Dose See Taper PO DIRECTED 03/11/23 03/11/23 History Pack] Clopidogrel [Plavix] 75 mg PO HS #0 03/12/23 03/11/23 Rx Allergies Allergy/AdvReac Type Severity Reaction Status Date / Time metoprolol [From Toprol XL] Allergy very sleepy Verified 03/11/23 15:52 nickel Allergy Rash/Hives Verified 03/11/23 15:52 scents/perfume/soap Allergy Rash/Hives Uncoded 03/11/23 15:52 Physical Exam Vitals: Vital Signs Temp Pulse Resp BP Pulse Ox 03/12/23 06:23 97.7 F 75 17 93/54 97 03/12/23 05:30 76 19 99/56 95 03/12/23 05:00 70 16 101/46 95 03/12/23 04:00 69 17 93/42 95 03/12/23 03:30 67 19 93/42 95 03/12/23 03:00 75 19 114/40 95 03/12/23 02:30 78 17 114/40 03/12/23 01:30 69 16 101/53 96 03/12/23 00:00 70 17 100/54 95 03/11/23 23:30 74 18 94/56 95 03/11/23 23:00 71 18 94/56 96 03/11/23 22:00 68 111/49 96 03/11/23 21:49 67 18 111/49 96 03/11/23 21:44 71 105/50 95 03/11/23 16:00 78 18 138/74 97 03/11/23 12:30 98.2 F 92 18 166/83 96 Intake and Output 03/11/23 03/11/23 03/12/23 14:59 22:59 06:59 Other: Weight 105.687 kg General appearance: The patient is alert, oriented, appears in no acute distress. HET: Head is normocephalic and atraumatic. Conjunctiva pink. Sclera anicteric. Neck: Supple without lymphadenopathy. Trachea midline. Heart: Regular. Lungs: Equal expansion, normal respiratory effort. Abdomen: Soft, nontender, nondistended with bowel sounds. No guarding or rigidity. Patient with right flank tenderness to palpation and palpable hematoma. Skin: No rashes. No jaundice. Right flank with small bruise noted. Extremities: Normal skin color and turgor. Neurological: No focal deficits. Alert and oriented x3. Results CBC & Chem 7: 03/11/23 12:55 03/11/23 12:55 Labs: Abnormal Lab Results - Last 24 Hours (Table) 03/11/23 03/11/23 Range/Units 12:55 12:55 WBC 12.5 H (3.8-10.6) k/uL Neutrophils # 10.6 H (1.3-7.7) k/uL BUN 21 H (7-17) mg/dL Glucose 105 H (74-99) mg/dL Comments: Gallbladder ultrasound: No evidence of gallstones. Common bile duct is prominent in size 8 mm. Distal CBD pathology in the differential diagnosis. Liver is somewhat coarse in correlate for underlying hepatocellular disease CT abdomen and pelvis with IV contrast reports immediately superficial to the right lower ribs there is a marked swelling of the abdominal wall musculature and this process extends superficially to nearly the skin surface has edematous change. Within the muscular swelling with a 8 cm AP by 5 cm TV by 8 cm CC mildly hyperdense component suspicious for hematoma. Assessment and Plan (1) Abdominal pain Narrative/Plan: 72-year-old female presenting to the emergency department with right sided abdominal/rib pain that started a day ago. States that she has been coughing significantly and is being treated for her wounds. On she states after she had been coughing somewhat she started feeling discomfort in the right upper rib cage region. She she came into the emergency department for further evaluation. She had an ultrasound of the gallbladder that showed no gallstones and minimally dilated CBD of 0.8 cm which overall is mildly increased for patient's age. Further studies with this CAT scan of the abdomen showed swelling in the right abdominal musculature wall suspicious for hematoma. Unclear etiology as patient denies any recent injury or fall. Pain is all related to the right musculoskeletal while in the flank region, there is noted palpable hematoma. No concerns for CBD dilation or CBD stone, as there are no gallstones in the gallbladder and liver enzymes are all within normal limits. No further workup indicated by gastroenterology. Current Visit: Yes Status: Acute Code(s): R10.9 - UNSPECIFIED ABDOMINAL PAIN SNOMED Code(s): 13523336 (2) Localized swelling of abdominal wall Current Visit: Yes Status: Acute Code(s): R22.2 - LOCALIZED SWELLING, MASS AND LUMP, TRUNK SNOMED Code(s): 12347024136551832 Plan: 1. Continue symptomatic and supportive care 2. No further workup indicated from gastroenterology 3. Continue with medical management per primary medical team 4. Patient is cleared from gastroenterology for discharge Thank you for this consultation, we will sign off at this time. Dr. Sabrina Perry I agree with the dictator's note, documented as a scribe by Lexy Long.
[2023-03-12 10:57] LABS: Basophils # (A) 0.07 X 10*3/uL (0.00-0.10); Basophils % (A) 0.6 %; Eosinophils # (A) 0.08 X 10*3/uL (0.04-0.35); Eosinophils % (A) 0.7 %; HCT 32.3 % (37.2-46.3); HGB 11.6 g/dL (12.0-15.0); Lymphocytes # (A) 1.61 X 10*3/uL (0.90-5.00); Lymphocytes % (A) 13.3 %; MCH 34.7 pg (27.0-32.0); MCHC 35.9 g/dL (32.0-37.0); MCV 96.7 FL (80.0-97.0); Mean Platelet Volume 8.7 FL (9.5-12.2); Monocytes # (A) 0.82 X 10*3/uL (0.20-1.00); Monocytes % (A) 6.8 %; NRBC Per 100 WBC 0 X 10*3/uL (0.00-0.01); Neutrophils # (A) 9.38 X 10*3/uL (1.80-7.70); Neutrophils % (A) 77.7 %; Platelet Count 297 X 10*3/uL (140-440); RBC 3.34 X 10*6/uL (4.10-5.20); RDW 17.7 % (11.5-14.5); WBC 12.07 X 10*3/uL (4.50-10.00)
[2023-03-12 11:13] LABS: ALT 25 U/L (8-44); AST 17 U/L (13-35); Albumin 4.2 g/dL (3.8-4.9); Albumin/Globulin Ratio 1.75 Ratio (1.60-3.17); Alkaline Phosphatase 106 U/L (41-126); Amylase 39 U/L (23-121); BUN/Creat Ratio 26.12 Ratio (12.00-20.00); Blood Urea Nitrogen 20.9 mg/dL (9.0-27.0); Calcium 9.3 mg/dL (8.7-10.3); Chloride 99 mmol/L (96-109); Globulin 2.4 g/dL (1.6-3.3); Glucose 117 mg/dL (70-110); Lipase 29 U/L (14-63); Potassium 3.7 mmol/L (3.5-5.5); Sodium 139 mmol/L (135-145); Total Bilirubin 0.5 mg/dL (0.3-1.2); Total Protein 6.6 g/dL (6.2-8.2)
[2023-03-12] MEDS ORDERED: POTASSIUM CHLORIDE ER 10 MEQ TAB.ER.PRT PO SCH (12:00)
[2023-03-12 12:14] VITALS: BP 123/66; PULSE 84; RESP 16; TEMP 98.7
[2023-03-12] MEDS ORDERED: ATORVASTATIN 20 MG TAB PO SCH (21:00)
[2023-03-12] MEDS ORDERED: MONTELUKAST 10 MG TAB PO SCH (21:00)
[2023-03-12] MEDS ORDERED: CLOPIDOGREL 75 MG TAB PO SCH (21:00)
== END 2023-03-12 11:49 | disposition home or self-care (01) ==
LOC: EC 12:29 → 6NMEDSUR 15:43
PROVIDERS: ADMIT Family Medicine; ATTEND Family Medicine
DX: R10.9 Unspecified abdominal pain (principal); R19.00 Intra-abdominal and pelvic swelling, mass and lump, unspecified site; R55 Syncope and collapse; K83.8 Other specified diseases of biliary tract; S30.1XXA Contusion of abdominal wall, initial encounter; X58.XXXA Exposure to other specified factors, initial encounter; J40 Bronchitis, not specified as acute or chronic; I11.0 Hypertensive heart disease with heart failure; I50.32 Chronic diastolic (congestive) heart failure; E78.5 Hyperlipidemia, unspecified; G47.30 Sleep apnea, unspecified; F32.A Depression, unspecified; E03.9 Hypothyroidism, unspecified; I25.10 Atherosclerotic heart disease of native coronary artery without angina pectoris; I35.8 Other nonrheumatic aortic valve disorders; I31.1 Chronic constrictive pericarditis; E66.01 Morbid (severe) obesity due to excess calories; Z68.42 Body mass index [BMI] 45.0-49.9, adult; Z85.3 Personal history of malignant neoplasm of breast; Z86.73 Personal history of transient ischemic attack (TIA), and cerebral infarction without residual deficits; Z87.891 Personal history of nicotine dependence; Z79.02 Long term (current) use of antithrombotics/antiplatelets; Z79.890 Hormone replacement therapy; Z79.899 Other long term (current) drug therapy
CPT/HCPCS: 96374; 96375 ×2; 99285; 36415; 93005; 85379; 80053 ×2; 82150 ×2; 83690 ×2; 84484; 85025 ×2; 85610; 85730; 81003; 71046; 74018; 76705; 74177; G0378 ×3; J2270; J2405; C9113; J1170; Q9967

== ENCOUNTER → 2023-03-24 | Outpatient (CLI) | payer MEDICARE ==
[2023-03-24 13:25] LABS: African American GFR (CKD) >90 (>60 ml/min/1.73 sqM); Blood Urea Nitrogen 22 mg/dL (7-17); Non-African American GFR(CKD) 86 (>60 ml/min/1.73 sqM)
--- NOTE | 2023-03-24 14:03 | CT ---
Exam: CT Angiography of the Chest. Date: 01/22/2023. Comparison: None History: Chronic shortness of breath. Technique: CT examination of the chest was performed following the intravenous administration of mill iliters of Isovue-370. CT dose lowering techniques were used, to include: automated exposure control, adjustment for patient size, and/or use of iterative reconstruction. FINDINGS: CHEST WALL: Prior left mastectomy. Surgical clips are seen within the left axillary region. Mediastinum and Maria Ines: There is no axillary, mediastinal or hilar lymphadenopathy. Pleural and Pericardial spaces: There are no pleural or pericardial effusions. Upper Abdomen: Mild scattered band is seen around the region of the gastroesophageal junction. The vi sualized upper abdomen otherwise appears unremarkable. Cardiovascular: There is mild vascular calcification in the aortic arch without evidence of aneurysma l dilation or dissection. Pulmonary Artery: There are no filling defects in the pulmonary arteries. Lung Parenchyma and Airways: Scattered small nodules are seen throughout the lungs bilaterally with t he largest in the left upper lobe measuring 7 mm on series 11 image 17. The lungs otherwise appear cl ear. Bones: No fracture or aggressive osseous lesion. IMPRESSION: 1. No evidence of pulmonary embolism. 2. No evidence of thoracic aortic aneurysm or dissection. 3. No evidence of pneumonia, pleural or pericardial effusions. 4. Scattered small pulmonary nodules. Follow-up in 6 months is recommended.
== END | disposition home or self-care (01) ==
LOC: RADCTMAIN 12:38
PROVIDERS: ATTEND Family Medicine
DX: I38 Endocarditis, valve unspecified (principal); R91.8 Other nonspecific abnormal finding of lung field; I35.0 Nonrheumatic aortic (valve) stenosis; R06.02 Shortness of breath
CPT/HCPCS: 82565; 84520; 71275; 36415; Q9967

== ENCOUNTER 2023-06-24 10:43 | Day surgery (SDC) | payer MEDICARE ==
[2023-06-21 15:12] VITALS: BMI 47.6
--- NOTE | 2023-06-23 21:22 | HP ---
HISTORY AND PHYSICAL DATE OF SURGERY: 06/24/2023. HISTORY OF PRESENT ILLNESS: Jayne Llanes is a 72-year-old patient seen with progressive left knee pain. We discussed options for treatment. She elected to proceed with left knee arthroscopy. Consent was obtained. PAST MEDICAL HISTORY: Hypertension, hyperlipidemia, hypothyroidism. PAST SURGICAL HISTORY: Right total knee arthroplasty. DAILY MEDICATIONS: 1. Atorvastatin. 2. Fluoxetine. 3. Lasix. 4. Levothyroxine. 5. Plavix. 6. Losartan. 7. Nystatin. ALLERGIES: None. SOCIAL HISTORY: She denies tobacco use. PHYSICAL EVALUATION OF THE LEFT KNEE: Range of motion is 0 to 110 degrees. Mild effusion. Tenderness along the medial and lateral joint lines. Positive medial and lateral Kathy's. Ligaments stable. Hip rotation without pain. Distal neurovascular exam is intact. IMAGING STUDIES: Radiographs of the left knee revealed some mild osteoarthritic changes. MRI of left knee revealed abnormality of the medial meniscus. IMPRESSION: 1. Internal derangement of left knee with medial meniscal tear. 2. Hypertension. 3. Hyperlipidemia. 4. Hypothyroidism. PLAN: Left knee arthroscopy with partial medial meniscectomy and debridement. MMODL / IJN: [id number] /
[~2023-06-24 10:43] MED LIST changes: -LACTATED RINGERS 1,000 ML IV SCH; +MIDAZOLAM 2 MG/2 ML VIAL IV PRN
[2023-06-24] MEDS: DEXAMETHASONE SOD PHOSPHATE 4 MG/ML 1 ML VIAL IV ONE (11:10)
[2023-06-24] MEDS: ONDANSETRON 4 MG/2 ML VIAL IVP ONE (11:10)
[2023-06-24] MEDS: LACTATED RINGERS 1,000 ML IV SCH (11:10)
[2023-06-24 11:38] VITALS: TEMP 98.9
[2023-06-24] MEDS ORDERED: SUCCINYLCHOLINE CHLORIDE 200 MG/10 ML VIAL IV ONE (11:42)
[2023-06-24] MEDS ORDERED: fentaNYL (PF) 50 MCG/ML 2 ML AMP ONE (11:42)
[2023-06-24] MEDS ORDERED: LIDOCAINE 1% INJ 10MG/ML (20 ML MDV) ONE (11:42)
[2023-06-24] MEDS ORDERED: PROPOFOL 10 MG/ML 20 ML VIAL IV ONE (11:42)
[2023-06-24] MEDS ORDERED: MIDAZOLAM 2 MG/2 ML VIAL ONE (11:42)
[2023-06-24] MEDS: BUPIVACAINE (PF) 0.25% 30 ML VIAL SQ ONE ×2 (11:45→12:29)
[2023-06-24] MEDS: HYDROmorphone 0.5 MG/0.5 ML SYRINGE IVP PRN (12:52)
--- NOTE | 2023-06-24 12:53 | P.OP ---
Date of Procedure: 06/24/23 Preoperative Diagnosis: Internal derangement left knee Postoperative Diagnosis: 1. Tear medial and lateral meniscus left knee 2. Grade IV chondromalacia medial femoral condyle left knee 3. Reactive synovitis medial, lateral and suprapatellar compartments left knee 4. Grade II/III chondromalacia patella left knee Procedure(s) Performed: 1. Arthroscopic partial medial and lateral meniscectomy left knee 2. Arthroscopic microfracture medial femoral condyle left knee 3. Arthroscopic partial synovectomy medial, lateral and suprapatellar compartments left knee 4. Arthroscopic chondroplasty patella left knee Anesthesia: LUCIOA, local Surgeon: Slava Wilson Estimated Blood Loss (ml): 8 Pathology: none sent Condition: stable Disposition: PACU Indications for Procedure: 72-year-old patient who was seen with progressive left knee pain. After having treatment options discussed, she elected to proceed with arthroscopy. Operative Findings: See description of procedure Description of Procedure: Patient was taken to the operative suite. Patient underwent a general anesthetic by the department of anesthesia. Patient was given preoperative antibiotics. The left lower extremity was placed in a well-padded arthroscopic leg elias. The left leg was prepped and draped in the normal sterile orthopedic fashion. A lateral parapatellar and suprapatellar incision was made. Trochars were inserted. Arthroscopy was initiated. Suprapatellar pouch revealed diffuse thick reactive synovitis. The patellofemoral joint appeared to articular congruently. There was grade II/III chondromalacia of the patella with some small osteochondral flap tears present. The scope was guided into the medial gutter. No loose bodies or plica were identified. The scope was then guided into the medial compartment. A medial parapatellar incision was made. Trocar inserted followed by probe. There was a tear involving the posterior horn of the medial meniscus. There were grade III/IV chondromalacia changes medial femoral condyle with some osteochondral flap tears present. There was thick reactive synovitis anteriorly. I also noted an area of grade IV chondromalacia along the medial tibial plateau with exposed bone. I performed a partial medial meniscectomy getting down to stable meniscal tissue. I performed a chondroplasty of the medial femoral condyle getting down to stable osteochondral tissue. I performed a partial synovectomy decompressing the thick reactive synovitis. I did note an area of exposed bone medial aspect medial femoral condyle weightbearing surface. I introduced a microfracture awl and performed a microfracture to that area penetrating the bone with resultant bleeding at the microfracture site. The residual meniscus was stable. The residual osteochondral surface was stable. There was good decompression of the synovitis. Scope and probe were then guided into the intercondylar notch. Cruciates were identified, probed and found to be stable. The scope and probe were then guided into lateral compartment. There was a small radial tear mid body lateral meniscus. There were mild grade I chondromalacia changes involving the lateral compartment without tears. There was some thick reactive synovitis anteriorly. I performed a partial lateral meniscectomy getting down to stable meniscal tissue. I performed a partial synovectomy decompressing the reactive synovitis. The residual meniscus was stable. There was good decompression of the synovitis. The scope was in guided back into the suprapatellar compartment. I introduced a motorized shaver into the suprasellar compartment. I debrided some piecemeal fragments of meniscus I encountered. I performed a chondroplasty of the patella getting down to stable osteochondral tissue. I performed a partial synovectomy decompressing thick reactive synovitis. The shaver was now removed. There was good decompression of the synovitis. The residual osteochondral surface about the patella. Stable. I took one more look around the entire knee, no residual debris. Instruments were now removed from the joint. The joint was infiltrated with .25% Marcaine. Steri-Strips were applied to the portal sites. Sterile dressings were applied. The patient was placed into a SHONDA hose. No tourniquet was utilized. The patient was awakened, transferred to a bed and taken to recovery stable satisfactory condition.
[2023-06-24 14:57] VITALS: BP 101/67; PULSE 68; RESP 18
== END 2023-06-24 15:05 | disposition home or self-care (01) ==
LOC: OR 10:43
PROVIDERS: ATTEND Orthopaedic Surgery
DX: S83.282A Other tear of lateral meniscus, current injury, left knee, initial encounter (principal); M22.42 Chondromalacia patellae, left knee; M65.162 Other infective (teno)synovitis, left knee; E03.9 Hypothyroidism, unspecified; E78.5 Hyperlipidemia, unspecified; I10 Essential (primary) hypertension; Z79.02 Long term (current) use of antithrombotics/antiplatelets; Z79.890 Hormone replacement therapy; Z79.899 Other long term (current) drug therapy; X58.XXXA Exposure to other specified factors, initial encounter
CPT/HCPCS: 29880; 29879; J2250; J0330; J1100; J0690; J2405; J2001; J3010; J2704; J1170; J0665

== ENCOUNTER → 2024-02-09 | Outpatient (CLI) | payer MEDICARE, OTHER ==
--- NOTE | 2024-02-09 11:26 | MM ---
Reason for Exam: Hx of breast cancer, mastectomy. Last mammogram was performed 1 year(s) and 6 month(s) ago. Patient History: Menarche at age 11. First Full-Term at age 21. Left ovary removed at age 45. Right ovary removed at age 43. Hysterectomy at age 43. Postmenopausal. Patient has history of breast feeding. Breast cancer, left, age 51. Previous chemotherapy at age 51. Estrogen, starting at age 45 for 5 years. Hormonal Contraceptives, starting at age 19 for 12 years. Tamoxifen for 5 years from age 51 until age 56. Core Biopsy on the Left side. 2001, Mastectomy on the Left side. 03/16/2002, Malignant Stereotactic Core Biopsy on the left side. Chemotherapy. 04/30/2009, Cancelled Right US Needle Biopsy on the right side. Prior Study Comparison: 03/04/2020 Bilateral Screening Mammogram, [facility]. 07/08/2021 Right Diagnostic Mammogram, [facility]. 08/11/2022 Right MG 3D diag mammo w/cad RT, [facility]. Tissue Density: Right: The breasts are almost entirely fatty. Findings: Analyzed By CAD. No new suspicious masses, calcifications or distortions. Overall Assessment: Benign, BI-RAD 2 Management: Screening Mammogram of the right breast in 1 year. Results were given to the patient verbally at the time of exam. Patient should continue monthly self-breast exams. A clinical breast exam by your physician is recommended on an annual basis. This exam should not preclude additional follow-up of suspicious palpable abnormalities. Note on Domenica scores and lifetime risk: 1. A Domenica score greater than 3% is considered moderate risk. If this is the case, consider specialist referral to assess eligibility for a risk reducing agent. 2. If overall lifetime risk for the development of breast cancer is 20% or higher, the patient may qualify for future screening with alternating mammogram and breast MRI. [facility], , 02/09/2024 11:22 AM. Electronically signed and approved by: Casa Rangel DO
== END | disposition home or self-care (01) ==
LOC: RADMAMWWP 10:52
PROVIDERS: ATTEND Family Medicine
CPT/HCPCS: 77061; 77065

== ENCOUNTER → 2024-03-20 | Outpatient (CLI) | payer MEDICARE, OTHER ==
[2024-03-20 18:41] LABS: Basophils # (A) 0.06 X 10*3/uL (0.00-0.10); Basophils % (A) 0.6 %; Eosinophils # (A) 0.23 X 10*3/uL (0.04-0.35); Eosinophils % (A) 2.5 %; HCT 41.2 % (37.2-46.3); Lymphocytes % (A) 20.4 %; MCH 29.3 pg (27.0-32.0); MCHC 31.6 g/dL (32.0-37.0); Mean Platelet Volume 9.2 FL (9.5-12.2); Monocytes # (A) 0.45 X 10*3/uL (0.20-1.00); Monocytes % (A) 4.8 %; NRBC Per 100 WBC 0 X 10*3/uL (0.00-0.01); Neutrophils # (A) 6.63 X 10*3/uL (1.80-7.70); Neutrophils % (A) 71.2 %; Platelet Count 224 X 10*3/uL (140-440); RBC 4.43 X 10*6/uL (4.10-5.20); RDW 15.5 % (11.5-14.5); WBC 9.32 X 10*3/uL (4.50-10.00)
[2024-03-20 18:46] LABS: BUN/Creat Ratio 30.57 Ratio (12.00-20.00); Blood Urea Nitrogen 21.4 mg/dL (9.0-27.0); Calcium 9.2 mg/dL (8.7-10.3); Carbon Dioxide 29.5 mmol/L (21.6-31.8); Chloride 102 mmol/L (96-109); Glucose 90 mg/dL (70-110); Potassium 4.3 mmol/L (3.5-5.5); Sodium 143 mmol/L (135-145)
== END | disposition home or self-care (01) ==
LOC: LABWHC1 15:46
PROVIDERS: ATTEND Internal Medicine
DX: I35.0 Nonrheumatic aortic (valve) stenosis (principal)
CPT/HCPCS: 36415; 80048; 85025

== ENCOUNTER 2024-05-09 17:20 | Emergency (ER) | payer MEDICARE ==
[2024-05-09 17:34] VITALS: TEMP 98.2
--- NOTE | 2024-05-09 18:04 | ED ---
General Adult HPI - General Chief complaint: Shortness of Breath Stated complaint: SOB-sent by PCP Time Seen by Provider: 05/09/24 17:30 Source: patient, RN notes reviewed, old records reviewed Mode of arrival: wheelchair Limitations: no limitations - History of Present Illness Initial comments: This is a 73-year-old female who presents to the emergency department complaining of difficulty breathing over the last couple of days. Patient states she went saw her surgeon who replaced her valve 1 month ago and he thought she sounded fine and sent her home to follow-up with a director of agronomy tomorrow for which she has an appointment. Patient instead decided to go see her primary medical care doctor who sent her in here because of her difficulty breathing. Patient denies any fever chills or cough. Patient denies any chest pain or palpitations. Patient denies any abdominal pain. Patient does state a swelling in the legs is worsened has been - Related Data Home Medications Medication Instructions Recorded Confirmed Atorvastatin [Lipitor] 20 mg PO HS 12/28/14 05/09/24 Levothyroxine Sodium [Synthroid] 50 mcg PO DAILY 12/28/14 05/09/24 Montelukast [Singulair] 10 mg PO HS 12/28/14 05/09/24 FLUoxetine HCL [PROzac] 20 mg PO DAILY 04/28/17 05/09/24 Potassium Chloride [Klor-Con 10 ER] 10 meq PO DIRECTED 04/28/17 05/09/24 Furosemide [Lasix] 80 mg PO DAILY 06/20/20 05/09/24 Albuterol Sulfate [Albuterol 2 puff INHALATION RT-QID PRN 03/11/23 05/09/24 Sulfate Hfa] Fluticasone Nasal Alpha [Flonase 1 spray EA NOSTRIL DAILY 03/11/23 05/09/24 Nasal Alpha] Aspirin [Adult Low Dose Aspirin EC] 81 mg PO DAILY 05/09/24 05/09/24 Estradiol Cream [Estrace Cream 1 gm VAGINAL TUFR 05/09/24 05/09/24 0.01%] Magnesium Oxide [Magox 400] 400 mg PO W/BRKFST 05/09/24 05/09/24 Metoprolol Tartrate [Lopressor] 12.5 mg PO BID 05/09/24 05/09/24 Multivitamins, Thera [Multivitamin 1 tab PO DAILY 05/09/24 05/09/24 (formulary)] Sennosides/Docusate Sodium 1 tab PO BID 05/09/24 05/09/24 [Senna-S 8.6-50 mg Tablet] Triamcinolone 0.1% Cream [Kenalog 1 applicatio TOPICAL BID PRN 05/09/24 05/09/24 0.1% Cream] methocarbamoL [Robaxin] 500 mg PO TID PRN 05/09/24 05/09/24 Allergies Allergy/AdvReac Type Severity Reaction Status Date / Time metoprolol [From Toprol XL] Allergy very sleepy Verified 05/09/24 19:26 nickel Allergy Rash/Hives Verified 05/09/24 19:26 scents/perfume/soap Allergy Rash/Hives Uncoded 05/09/24 17:29 Review of Systems ROS Statement: Those systems with pertinent positive or pertinent negative responses have been documented in the HPI. ROS Other: All systems not noted in ROS Statement are negative. Past Medical History Past Medical History: Cancer, CVA/TIA, Hyperlipidemia, Hypertension, Osteoarthritis (OA), Sleep Apnea/CPAP/BIPAP, Thyroid Disorder Additional Past Medical History / Comment(s): breast cancer w/mastectomy & chemo., hx skin cancer., migraines, TIA 2018-no residual effects, heart murmur., leaky heart valve., occasional swelling legs., past hx of sleep apnea ., hx. of multiple colon polyps., pt has lap band . History of Any Multi-Drug Resistant Organisms: MRSA Date of last positivie culture/infection: 12-30-2014 MDRO Source:: abdominal wound Past Surgical History: Bariatric Surgery, Cardiac Valve Replacement, Heart Catheterization, Hysterectomy, Joint Replacement, Tubal Ligation Additional Past Surgical History / Comment(s): jensen carpal tunnel , lap band (Dr Fontana)., Rt Knee replacement, Left breast masectomy. left shoulder replacement, cyst removed from wrist, colonoscopies with polyps., cataracts with lens implants and a follow up eye surgery. Past Anesthesia/Blood Transfusion Reactions: No Reported Reaction Past Psychological History: Depression Smoking Status: Former smoker Past Alcohol Use History: Rare Past Drug Use History: None Reported - Past Family History Brother(s) Family Medical History: Cancer Additional Family Medical History / Comment(s): brain tumor Mother Family Medical History: Cancer Additional Family Medical History / Comment(s): thyroid cancer General Exam - General Exam Comments Initial Comments: GENERAL: Patient is well-developed and well-nourished. Patient is nontoxic and well- hydrated and is in mild distress. ENT: Neck is soft and supple. No significant lymphadenopathy is noted. Oropharynx is clear. Moist mucous membranes. Neck has full range of motion without eliciting any pain. EYES: The sclera were anicteric and conjunctiva were pink and moist. Extraocular movements were intact and pupils were equal round and reactive to light. Eyelids were unremarkable. PULMONARY: Crackles bilateral bases with some expiratory wheezing CARDIOVASCULAR: There is a regular rate and rhythm without any murmurs gallops or rubs. ABDOMEN: Soft and nontender with normal bowel sounds. SKIN: Skin is clear with no lesions or rashes and otherwise unremarkable. NEUROLOGIC: Patient is alert and oriented x3. Cranial nerves II through XII are grossly i ntact. Motor and sensory are also intact. Normal speech, volume and content. Symmetrical smile. MUSCULOSKELETAL: Normal extremities with adequate strength and full range of motion. 2+ edema LYMPHATICS: No significant lymphadenopathy is noted PSYCHIATRIC: Normal psychiatric evaluation. Limitations: no limitations Course Vital Signs 05/09/24 05/09/24 05/09/24 17:29 18:07 18:36 Temperature 98.2 F Pulse Rate 95 94 Respiratory 20 20 20 Rate Blood Pressure 154/83 122/80 O2 Sat by Pulse 96 97 Oximetry 05/09/24 20:18 Temperature Pulse Rate 95 Respiratory 29 H Rate Blood Pressure 145/83 O2 Sat by Pulse 99 Oximetry Medical Decision Making - Medical Decision Making EKG was interpreted by myself but EKG shows a sinus rhythm at 93 bpm NV was 185 QRS is 94 QT interval is 4 1 QTc is 451. Patient EKG shows no ST segment elevation or depression. Was pt. sent in by a medical professional or institution (, PA, MEN'S GARMENT FITTER, urgent care, hospital, or [place] [facility] [place] facility...) When possible be specific @ -No Did you speak to anyone other than the patient for history (EMS, parent, family, police, friend...)? What history was obtained from this source @ -No Did you review nursing and triage notes (agree or disagree)? Why? @ -I reviewed and agree with nursing and triage notes Were old charts reviewed (outside hosp., previous admission, EMS record, old EKG, old radiological studies, urgent care reports/EKG's, [place] health [place] facility records)? Report findings @ -No old charts were reviewed Differential Diagnosis? @ -Differential dyspnea EKG interpreted by me (3pts min.). @ -As above X-rays interpreted by me (1pt min.). @ -Chest x-ray shows mild pulmonary edema CT interpreted by me (1pt min.). @ -Patient CT showed no pulmonary embolism but did show some small pleural effusion. U/S interpreted by me (1pt. min.). @ -None done What testing was considered but not performed or refused? (CT, X-rays, U/S, labs)? Why? @ -None What meds were considered but not given or refused? Why? @ -None Did you discuss the management of the patient with other professionals (professionals i.e. , PA, MEN'S GARMENT FITTER, lab, RT, psych nurse, forensic social worker, bank consultant, teacher, business enterprise officer, human services case manager)? Give summary @ -No Was smoking cessation discussed for >3mins.? @ -No Was critical care preformed (if so, how long)? @ -No Were there social determinants of health that impacted care today? How? (Homelessness, low income, unemployed, alcoholism, drug addiction, transportation, low edu. Level, literacy, decrease access to med. care, fci, rehab)? @ -No Was there de-escalation of care discussed even if they declined (Discuss DNR or withdrawal of care, Hospice)? DNR status @ -No What co-morbidities impacted this encounter? (DM, HTN, Smoking, COPD, CAD, Cancer, CVA, ARF, Chemo, Hep., AIDS, mental health diagnosis, sleep apnea, morbid obesity)? @ -None Was patient admitted / discharged? Hospital course, mention meds given and route, prescriptions, significant lab abnormalities, going to OR and other pertinent info. @ -Patient was given Lasix in the emergency department she was feeling much better she ambulated without problem. Patient did not want to be admitted to the hospital and will go home with daughter. Patient does have an appointment tomorrow with cardiology Undiagnosed new problem with uncertain prognosis? @ -No Drug Therapy requiring intensive monitoring for toxicity (Heparin, Nitro, Insulin, Cardizem)? @ -No Were any procedures done? @ -No Diagnosis/symptom? @ -Mild pulmonary edema Acute, or Chronic, or Acute on Chronic? @ -Acute Uncomplicated (without systemic symptoms) or Complicated (systemic symptoms)? @ -Complicated Side effects of treatment? @ -No Exacerbation, Progression, or Severe Exacerbation? @ -No Poses a threat to life or bodily function? How? (Chest pain, [place], [place], pneumonia, PE, COPD, DKA, ARF, appy, cholecystitis, CVA, Diverticulitis, Homicidal, Suicidal, threat to staff... and all critical care pts) @ -Yes this could lead to hypoxia and endorgan dysfunction - Lab Data Result diagrams: 05/09/24 18:17 05/09/24 18:17 Lab Results 05/09/24 05/09/24 05/09/24 Range/Units 18:17 18:17 18:17 WBC 4.5 (3.8-10.6) k/uL RBC 3.97 (3.80-5.40) m/uL Hgb 11.3 L (11.4-16.0) gm/dL Hct 35.0 (34.0-46.0) % MCV 88.1 (80.0-100.0) fL MCH 28.5 (25.0-35.0) pg MCHC 32.4 (31.0-37.0) g/dL RDW 14.8 (11.5-15.5) % Plt Count 196 (150-450) k/uL MPV 7.4 Neutrophils % 83 % Lymphocytes % 5 % Monocytes % 6 % Eosinophils % 5 % Basophils % 0 % Neutrophils # 3.7 (1.3-7.7) k/uL Lymphocytes # 0.2 L (1.0-4.8) k/uL Monocytes # 0.3 (0-1.0) k/uL Eosinophils # 0.2 (0-0.7) k/uL Basophils # 0.0 (0-0.2) k/uL Hypochromasia Moderate PT 11.0 (10.0-12.5) sec INR 1.0 (<1.2) APTT 25.5 (22.0-30.0) sec D-Dimer 1.14 H (<0.60) mg/L FEU Sodium 136 L (137-145) mmol/L Potassium 3.7 (3.5-5.1) mmol/L Chloride 100 (98-107) mmol/L Carbon Dioxide 31 H (22-30) mmol/L Anion Gap 5 mmol/L BUN 8 (7-17) mg/dL Creatinine 0.54 (0.52-1.04) mg/dL Est GFR (CKD-EPI)AfAm >90 (>60 ml/min/1.73 sqM) Est GFR (CKD-EPI)NonAf >90 (>60 ml/min/1.73 sqM) Glucose 104 H (74-99) mg/dL Plasma Lactic Acid Shan (0.7-2.0) mmol/L Calcium 9.2 (8.4-10.2) mg/dL Magnesium 2.2 (1.6-2.3) mg/dL Total Bilirubin 0.4 (0.2-1.3) mg/dL AST 33 (14-36) U/L ALT 26 (4-34) U/L Alkaline Phosphatase 96 (38-126) U/L Troponin I (0.000-0.034) ng/mL NT-Pro-B Natriuret Pep 1370 pg/mL Total Protein 6.5 (6.3-8.2) g/dL Albumin 4.0 (3.5-5.0) g/dL 05/09/24 05/09/24 Range/Units 18:17 18:17 WBC (3.8-10.6) k/uL RBC (3.80-5.40) m/uL Hgb (11.4-16.0) gm/dL Hct (34.0-46.0) % MCV (80.0-100.0) fL MCH (25.0-35.0) pg MCHC (31.0-37.0) g/dL RDW (11.5-15.5) % Plt Count (150-450) k/uL MPV Neutrophils % % Lymphocytes % % Monocytes % % Eosinophils % % Basophils % % Neutrophils # (1.3-7.7) k/uL Lymphocytes # (1.0-4.8) k/uL Monocytes # (0-1.0) k/uL Eosinophils # (0-0.7) k/uL Basophils # (0-0.2) k/uL Hypochromasia PT (10.0-12.5) sec INR (<1.2) APTT (22.0-30.0) sec D-Dimer (<0.60) mg/L FEU Sodium (137-145) mmol/L Potassium (3.5-5.1) mmol/L Chloride (98-107) mmol/L Carbon Dioxide (22-30) mmol/L Anion Gap mmol/L BUN (7-17) mg/dL Creatinine (0.52-1.04) mg/dL Est GFR (CKD-EPI)AfAm (>60 ml/min/1.73 sqM) Est GFR (CKD-EPI)NonAf (>60 ml/min/1.73 sqM) Glucose (74-99) mg/dL Plasma Lactic Acid Shan 0.7 (0.7-2.0) mmol/L Calcium (8.4-10.2) mg/dL Magnesium (1.6-2.3) mg/dL Total Bilirubin (0.2-1.3) mg/dL AST (14-36) U/L ALT (4-34) U/L Alkaline Phosphatase (38-126) U/L Troponin I <0.012 (0.000-0.034) ng/mL NT-Pro-B Natriuret Pep pg/mL Total Protein (6.3-8.2) g/dL Albumin (3.5-5.0) g/dL Disposition Clinical Impression: Acute pulmonary edema Disposition: HOME SELF-CARE Condition: Fair Instructions (If sedation given, give patient instructions): Pulmonary Edema (ED) Additional Instructions: Will start taking a diuretic that Dr. Maradiaga gave her Patient should return to the emergency department the dyspnea gets worse Is patient prescribed a controlled substance at d/c from ED?: No Referrals: Valente Maradiaga MD [Primary Care Provider] - 1-2 days Time of Disposition: 20:58
--- NOTE | 2024-05-09 18:32 | XR ---
EXAMINATION TYPE: XR chest 2V DATE OF EXAM: 05/09/2024 6:28 PM COMPARISON: None. CLINICAL INDICATION: Female, 73 years old with history of difficulty breathing, TECHNIQUE: XR chest 2V view(s) obtained. FINDINGS: The heart size is prominent. The pulmonary vasculature is normal. No suspicious focal consolidation evident.. IMPRESSION: 1. Cardiomegaly [facility], , 05/09/2024 6:30 PM
[2024-05-09 18:33] LABS: Basophils % (A) 0 %; Eosinophils # (A) 0.2 k/uL (0-0.7); Eosinophils % (A) 5 %; HGB 11.3 gm/dL (11.4-16.0); Hypochromasia Moderate; Lymphocytes # (A) 0.2 k/uL (1.0-4.8); Lymphocytes % (A) 5 %; MCH 28.5 pg (25.0-35.0); MCHC 32.4 g/dL (31.0-37.0); MCV 88.1 fL (80.0-100.0); Mean Platelet Volume 7.4; Monocytes # (A) 0.3 k/uL (0-1.0); Monocytes % (A) 6 %; Neutrophils # (A) 3.7 k/uL (1.3-7.7); Neutrophils % (A) 83 %; Platelet Count 196 k/uL (150-450); RBC 3.97 m/uL (3.80-5.40); RDW 14.8 % (11.5-15.5); WBC 4.5 k/uL (3.8-10.6)
[2024-05-09] MEDS: FUROSEMIDE 10 MG/ML 4 ML VIAL IV STA (18:35)
[2024-05-09 18:45] LABS: ALT 26 U/L (4-34); AST 33 U/L (14-36); African American GFR (CKD) >90 (>60 ml/min/1.73 sqM); Alkaline Phosphatase 96 U/L (38-126); Anion Gap 5 mmol/L; Blood Urea Nitrogen 8 mg/dL (7-17); Calcium 9.2 mg/dL (8.4-10.2); Carbon Dioxide 31 mmol/L (22-30); Chloride 100 mmol/L (98-107); Glucose 104 mg/dL (74-99); Magnesium 2.2 mg/dL (1.6-2.3); Non-African American GFR(CKD) >90 (>60 ml/min/1.73 sqM); Potassium 3.7 mmol/L (3.5-5.1); Sodium 136 mmol/L (137-145); Total Bilirubin 0.4 mg/dL (0.2-1.3); Total Protein 6.5 g/dL (6.3-8.2)
[2024-05-09 18:47] LABS: Partial Thromboplastin Time 25.5 sec (22.0-30.0)
[2024-05-09 18:53] LABS: NT-Pro-B-Type Natriuretic Pept 1370 pg/mL
--- NOTE | 2024-05-09 19:48 | CT ---
EXAMINATION TYPE: CT chest angio for PE DATE OF EXAM: 05/09/2024 7:39 PM COMPARISON: 03/24/2023 CLINICAL INDICATION: Female, 73 years old with history of Difficulty breathing, PADMINI TECHNIQUE: CT of the chest is performed on a spiral scan at 2 mm thick sections. Study is performed with intravenous contrast timed for evaluation for pulmonary embolism. This will limit additional po rtions of the evaluation. 3-D MIP images reconstructed by the technologist are reviewed on the compu ter in the coronal and sagittal planes. Contrast used:100ML mL of Isovue 370 with IV Contrast, (none if empty) Oral contrast used: (none if empty) CT DLP: 613.9 mGycm, Automated exposure control for dose reduction was used. FINDINGS: No persistent filling defects are evident to suggest an acute pulmonary embolism. No mediastinal or hilar adenopathy enlarged by CT criteria is evident. The ascending aorta diameter at the level of the main pulmonary artery is 3.8 cm. The main pulmonary artery diameter at the bifurcation is 3.2 cm. Small hiatal hernia appears to be present. There is a lap band present. This could be a patulous distal esophagus. A left breast prosthesis is present2 There is a small right pleural effusion. Subtle infiltrate may be within the posterior left midlung, example image [address] sections were through the upper abdomen. Upper abdomen appears unremarkable. IMPRESSION: 1. No acute pulmonary embolism. 2. Minimal infiltrate may be in the left posterior lung. 3. Small right pleural effusion [facility], , 05/09/2024 7:46 PM
[2024-05-09 21:31] VITALS: BP 129/66; PULSE 96; RESP 17
== END 2024-05-09 21:31 | disposition home or self-care (01) ==
LOC: EC 17:20
DX: J81.0 Acute pulmonary edema (principal); Z88.8 Allergy status to other drugs, medicaments and biological substances; Z91.09 Other allergy status, other than to drugs and biological substances; Z87.891 Personal history of nicotine dependence; Z86.73 Personal history of transient ischemic attack (TIA), and cerebral infarction without residual deficits
CPT/HCPCS: 36415; 93005; 85379; 83880; 80053; 83605; 83735; 84484; 85025; 85610; 85730; 71046; 71275; 99285; 96374; J1940; Q9967